=== PATIENT | male | born 1985 | race Caucasian/White ===

== ENCOUNTER 2019-11-25 09:01 | Outpatient (CLI) | payer OTHER, SELFPAY ==
--- NOTE | ~2019-11-25 | US_ITS ---
EXAMINATION: US scrotum doppler EXAM DATE: 11/25/2019 09:47 INDICATION: Bilateral lumps after vasectomy 6 years ago. Family history testicular cancer. TECHNIQUE: Multiple grayscale and Doppler images of the testicles and scrotum were obtained bilateral ly. There is no prior study for comparison. FINDINGS: Right testicle measures 4.5 x 2.0 x 2.9 cm and is morphologically normal. Low resistance Doppler natalie w confirmed. The epididymis is unremarkable. There is a small varicocele. Left testicle measures 4.3 x 2.0 x 2.9 cm and is morphologically normal. Low resistance Doppler flow confirmed. The epididymis is unremarkable. There is a small varicocele. There is a small hydrocele. IMPRESSION: 1. Scanning in patient's areas of concern demonstrated small bilateral varicoceles corresponding to the palpable abnormalities. 2. Normal testicles. Reviewed, dictated and finalized at location A. IMPRESSION: 1. Scanning in patient's areas of concern demonstrated small bilateral varicoc eles corresponding to the palpable abnormalities. 2. Normal testicles.
[2019-11-25 09:20] LABS: Hematocrit 43.5 % (40.0-54.0); Hemoglobin 14.8 g/dL (14.0-18.0); Mean Corpuscular Volume 97.1 fL (78.0-102.0); Mean Platelet Volume 10.7 fl (8.7-11.0); Platelet Count Result 272 K/mm3 (150-420); Red Blood Count 4.48 M/mm3 (4.70-6.10); Red Cell Distribution Width 13.1 % (11.6-14.4)
[2019-11-25 10:12] LABS: Alanine Aminotransferase 45 U/L (16-63); Albumin Level 3.9 g/dL (3.4-5.0); Alkaline Phosphatase 93 U/L (46-116); Anion Gap 12.4 mmol/L (7-16); Aspartate Amino Transferase 27 U/L (15-37); Bilirubin,Total 0.4 mg/dL (0.00-1.00); Blood Urea Nitrogen 15 mg/dL (7-18); CRP < 0.2 mg/dL (0.0-0.9); Calcium 9.1 mg/dL (8.5-10.1); Carbon Dioxide 28 mmol/L (21-32); Chloride 103 mmol/L (98-108); Estimated Glomerular Filt Rate > 60; Glucose 73 mg/dL (70-99); Osmolality Calculated 287 mOsm/kg (285-295); Potassium 4.4 mmol/L (3.5-5.1); Sodium 139 mmol/L (136-145); Total Protein 6.9 g/dL (6.4-8.2)
[2019-11-25 10:23] LABS: Erythrocyte Sedimentation Rate 4 mm/hr (0-15)
== END 2019-11-25 09:02 | disposition home or self-care (01) ==
PROVIDERS: PCP Family Medicine; Visit Provider Family Medicine
DX: N50.89 Other specified disorders of the male genital organs (principal); A08.4 Viral intestinal infection, unspecified; I86.1 Scrotal varices
CPT/HCPCS: 36415; 76870; 80053; 85027; 85652; 86140; 93976

== ENCOUNTER 2020-06-28 11:01 | Outpatient (CLI) | payer OTHER, SELFPAY ==
[2020-07-01 13:53] LABS: TB Skin Test Erythema 0 mm; TB Skin Test Induration 0 mm (0-10); TB Skin Test Interpretation Negative (Negative); TB Skin Test Site Left Arm
== END 2020-06-28 11:02 | disposition home or self-care (01) ==
LOC: CHSLAB 11:03
PROVIDERS: PCP Family Medicine; Visit Provider Family Medicine
DX: Z00.00 Encounter for general adult medical examination without abnormal findings (principal)
CPT/HCPCS: 36415; 86580

== ENCOUNTER 2023-07-25 10:20 | Outpatient (CLI) | payer OTHER, SELFPAY ==
--- NOTE | ~2023-07-25 | XR_ITS ---
XR lumbar spine 2-3V DATE: 07/25/2023 11:06 INDICATION: Low back pain. Slipped on ice in 2017. TECHNIQUE: AP, lateral, coned lateral lumbosacral views COMPARISON: None FINDINGS: The lumbar vertebrae are normally aligned. No fracture or bone destruction or spondylolisth esis. The included lower thoracic and lumbar pedicles are intact. Lumbar and sacral interspaces are w ell preserved. The sacroiliac joints appear normal. Surgical clips, right upper quadrant, likely due to cholecystectomy. IMPRESSION: No significant abnormality of the lumbar spine Reviewed, dictated and finalized at location L. 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
--- NOTE | ~2023-07-25 | XR_ITS ---
XR sacroiliac joints min 3V DATE: 07/25/2023 11:06 INDICATION: Back pain TECHNIQUE: AP and bilateral oblique views of the sacroiliac joints COMPARISON: None FINDINGS: Normal alignment at the pubic symphysis and sacroiliac joints. No erosive change or ankylos is. No sacral fracture or bone destruction is detected. Hip joint spaces appear symmetric and relatively preserved. IMPRESSION: Negative sacroiliac joints Reviewed, dictated and finalized at Location A. 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
[2023-07-25 10:50] LABS: Basophils Absolute Auto 0.07 K/mm3 (0.00-0.10); Basophils Percent Auto 0.6 % (0.0-1.0); Eosinophils Absolute Auto 0.11 K/mm3 (0.02-0.50); Eosinophils Percent Auto 0.9 % (1.0-6.0); Hematocrit 44.5 % (40.0-54.0); Hemoglobin 15.1 g/dL (14.0-18.0); Immature Granulocyte Absolute 0.06 K/mm3 (0.00-0.00); Immature Granulocyte Percent A 0.5 % (0.0-0.0); Lymphocytes Absolute Auto 2.53 K/mm3 (1.10-4.50); Lymphocytes Percent Auto 21.4 % (18.0-42.0); Mean Corpuscular HGB Conc 33.9 g/dL (32.0-36.0); Mean Corpuscular Hemoglobin 32.3 pg (27.0-31.0); Mean Corpuscular Volume 95.1 fL (78.0-102.0); Monocytes Percent Auto 6.8 % (2.0-11.0); Neutrophils Absolute Auto 8.3 K/mm3 (1.7-7.2); Neutrophils Percent Auto 69.8 % (50.0-70.0); Platelet Count Result 319 K/mm3 (150-420); Red Blood Count 4.68 M/mm3 (4.70-6.10); Red Cell Distribution Width 13.4 % (11.6-14.4); White Blood Count 11.8 K/mm3 (4.8-10.8)
[2023-07-25 11:25] LABS: Thyroid Stimulating Hormone Reflex 1.82 u/IU/mL (0.36-3.74)
[2023-07-25 11:33] LABS: Alanine Aminotransferase 38 U/L (16-63); Alkaline Phosphatase 103 U/L (46-116); Anion Gap 11 mmol/L (8-16); Aspartate Amino Transferase 21 U/L (15-37); Bilirubin,Total 0.7 mg/dL (0.00-1.00); Blood Urea Nitrogen 13 mg/dL (7-18); Calcium 8.6 mg/dL (8.5-10.1); Carbon Dioxide 26 mmol/L (21-32); Chloride 105 mmol/L (98-108); Cholesterol 233 mg/dL (0-200); Estimated Glomerular Filt Rate > 60; Glucose 94 mg/dL (70-99); HDL Direct 34 mg/dL (40-60); LDL Cholesterol Calculated 161 mg/dL (<130); Osmolality Calculated 294 mOsm/kg (285-295); Potassium 4.3 mmol/L (3.5-5.1); Prostate Specific Antigen 1.3 ng/mL (< OR = 4.0); Sodium 142 mmol/L (136-145); Total Protein 7.2 g/dL (6.4-8.2); Triglycerides 189 mg/dL (0-150)
== END 2023-07-25 10:21 | disposition home or self-care (01) ==
PROVIDERS: PCP Family Medicine; Visit Provider Family Medicine
DX: Z00.00 Encounter for general adult medical examination without abnormal findings (principal); M54.9 Dorsalgia, unspecified; R35.1 Nocturia; E11.9 Type 2 diabetes mellitus without complications
CPT/HCPCS: 36415; 72100; 72202; 80053; 80061; 84153; 84443; 85025; G0103

== ENCOUNTER 2023-07-30 08:57 | Outpatient (RCR) | payer OTHER, SELFPAY ==
--- NOTE | 2023-07-30 10:42 | OPREHPOC ---
Outpatient Therapy Plan of Care This is a Multidisciplinary Plan of Care that may contain components documented by all disciplines (PT, OT, and ST.) PT Problem 1 PT Problem #1 Knowledge Deficit PT Goal 1 Goal Patient to demonstrate independence with HEP Target Visit 5 PT Problem 2 PT Problem #2 Pain PT Goal 1 Goal 1. Patient to report highest pain at 3/10 2. Patient to report ability to sleep with no disturbance due to low back pain Target Visit 10 PT Problem 3 PT Problem #3 Impaired Range of Motion PT Goal 1 Goal Patient to demonstrate lumbar flexion ability to reach to the floor in order to pick his son up Target Visit 10 PT Problem 4 PT Problem #4 Impaired Strength PT Goal 1 Goal Patient to demonstrate 4+/5 abdominal strength to improve lifting mechanics to return to house hold chores at PLOF Target Visit 10 PT Problem 5 PT Problem #5 Impaired Functional Mobil PT Goal 1 Goal 1. Patient to score 30% improvement on Back Index 2. Patient to demonstrate ability to lift 30# from floor to return to picking up his son 3. Patient to report ability to ride in car for > 30 minutes Target Visit 10
--- NOTE | 2023-07-30 10:42 | PTOPEVAL1 ---
Assessment and note entered by Sonia Ortiz DPT Evaluation Information Assessment Status Evaluation Diagnosis low back pain Onset 07/25/23 Subjective Information Patient reports he has had back pain for the last ~7 years after a fall but pain has increased over the last 1.5 months. He reports pain is at low back to B hips with no reports of radiating pain. patient had x-ray performed that was negative. Patient reports pain is worse with driving, sitting on hard surfaces and picking up his baby at home. patient reports he is not working currently and is staying at home with his son. he worked as a [employer] previously. he reports the chiropractor has helped in the past. He has blood work done and has a follow up with MD on 08/01/23 to go over results Reported Pain Level Pain Score 8: Self Report Assessment PT Clinical Summary Mr. Moreira is a 38 year old male who presents to PT with low back pain. Patient demonstrates hypomobility of the lumbar spine, significant limitations in B LE flexibility and decreased core strength impairing his ability to ride in the car , sit for long periods of time and care for his son. He would benefit from skilled PT to address impairments and return to PLOF. Plan of Care Interventions Electrical Stimulation,Gait Training,Hot Pack/Cold Pack,Manual Therapy,Mechanical Traction,Patient/ Caregiver Educati,Therapeutic Activities, Therapeutic Exercise PT Services Indicated Yes Treatment Frequency and 2x weekly for 10 visits Duration These treatments will address the objective and functional deficits as defined above. The patient will be advanced safely and appropriately in order for the patient to progress towards his/her prior level of function. Additional exercises will be introduced and as well as a comprehensive home exercise program upon discharge, if needed, ?to ensure carryover of functional gains achieved in the clinic. This treatment plan has been reviewed and agreement upon by the patient.
--- NOTE | 2023-08-20 08:44 | PCPTNOTE ---
patient called, no answer
--- NOTE | 2023-08-22 10:22 | OPREHPOC ---
Outpatient Therapy Plan of Care This is a Multidisciplinary Plan of Care that may contain components documented by all disciplines (PT, OT, and ST.) PT Problem 1 PT Problem #1 Knowledge Deficit PT Goal 1 Goal Patient to demonstrate independence with HEP Target Visit 5 Progress Met PT Problem 2 PT Problem #2 Pain PT Goal 1 Goal 1. Patient to report highest pain at 3/10 2. Patient to report ability to sleep with no disturbance due to low back pain Target Visit 16 Comment continue PT Problem 3 PT Problem #3 Impaired Range of Motion PT Goal 1 Goal Patient to demonstrate lumbar flexion ability to reach to the floor in order to pick his son up Target Visit 16 PT Problem 4 PT Problem #4 Impaired Strength PT Goal 1 Goal Patient to demonstrate 4+/5 abdominal strength to improve lifting mechanics to return to house hold chores at PLOF Target Visit 16 PT Problem 5 PT Problem #5 Impaired Functional Mobil PT Goal 1 Goal 1. Patient to score 30% improvement on Back Index 2. Patient to demonstrate ability to lift 30# from floor to return to picking up his son 3. Patient to report ability to ride in car for > 30 minutes Target Visit 16 Comment progressing
--- NOTE | 2023-08-22 10:22 | PTOPREEVAL ---
Assessment and note entered by Sonia Ortiz DPT Evaluation Information Assessment Status Re-evaluation Diagnosis low back pain Onset 07/25/23 Subjective Information patient reports since start of PT he has noticed an improvement. he reports he has been able to sit for longer periods of time, greater ease with picking up his son, and driving is improved as well. he reports last night was his first episode since start of PT. he reports he is still fearful of driving due to episodes . he reports lifting continues to be his most painful activity. Reported Pain Level Pain Score 7: Self Report Assessment PT Clinical Summary Mr. Moreira has been seen for 8 visits of skilled PT with good progression towards goals. He demonstrates improved core strength and decreased pain levels. He has reports of improved sitting tolerance, improved lifting mechanics and ability to drive for increased distances. He continues to report difficulty with lifting heavy objects from the floor, sitting on hard surfaces and is fearful of driving. He would benefit from continued skilled PT to address remaining impairments and return to PLOF. Plan of Care Interventions Electrical Stimulation,Gait Training,Hot Pack/Cold Pack,Manual Therapy,Mechanical Traction,Patient/ Caregiver Educati,Therapeutic Activities, Therapeutic Exercise PT Services Indicated Yes Treatment Frequency and continue 2x weekly for 8 visits Duration These treatments will address the objective and functional deficits as defined above. The patient will be advanced safely and appropriately in order for the patient to progress towards his/her prior level of function. Additional exercises will be introduced and as well as a comprehensive home exercise program upon discharge, if needed, ?to ensure carryover of functional gains achieved in the clinic. This treatment plan has been reviewed and agreement upon by the patient.
--- NOTE | 2023-09-06 09:35 | PCPTNOTE ---
Addendum entered by Sonia Rivera, KENNETH 09/06/23 10:12: patient continues to report not feeling well and is taken to the ER Original Note: patient has episode of elevated BP and reports this is his episode . today's visits cancelled. BP at 174/104 initially but at 144/93 prior to leaving.
--- NOTE | 2023-09-11 10:30 | OPREHPOC ---
Outpatient Therapy Plan of Care This is a Multidisciplinary Plan of Care that may contain components documented by all disciplines (PT, OT, and ST.) PT Problem 1 PT Problem #1 Knowledge Deficit PT Goal 1 Goal Patient to demonstrate independence with HEP Target Visit 5 Progress Met PT Problem 2 PT Problem #2 Pain PT Goal 1 Goal 1. Patient to report highest pain at 3/10 2. Patient to report ability to sleep with no disturbance due to low back pain Target Visit 16 Progress Not Met PT Problem 3 PT Problem #3 Impaired Range of Motion PT Goal 1 Goal Patient to demonstrate lumbar flexion ability to reach to the floor in order to pick his son up Target Visit 16 Progress Not Met PT Problem 4 PT Problem #4 Impaired Strength PT Goal 1 Goal Patient to demonstrate 4+/5 abdominal strength to improve lifting mechanics to return to house hold chores at PLOF Target Visit 16 Progress Not Met PT Problem 5 PT Problem #5 Impaired Functional Mobil PT Goal 1 Goal 1. Patient to score 30% improvement on Back Index 2. Patient to demonstrate ability to lift 30# from floor to return to picking up his son 3. Patient to report ability to ride in car for > 30 minutes Target Visit 16 Progress Not Met
--- NOTE | 2023-09-11 10:30 | PTOPDC ---
Assessment and note entered by Nabila Mcclure, PT Evaluation Information Assessment Status Discharge Diagnosis low back pain Onset 07/25/23 Subjective Information Jai Moreira reports that overall his low back pain has not changed. He had to go to the ER from his PT appointment on 09/04/23 due to increased pain in his lower back, feeling like he was going to pass out, and feeling like he was going to lose control of his bowel/bladder. He reports this caused him to have a panic attack. At the ER, he was given valium and underwent a CT scan of his back that showed wedged discs in his 3 lower back levels. He has an appointment to see Dr. Abrams today after his PT appointment. 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 He notes his pain continues to be worse with sitting or driving too long and lifting items up. 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 He also is limited with lifting his child. He does note that when he has had his back popped in PT it has given him the most relief and he has some temporary relief with some of the stretches. Reported Pain Level Pain Score 0: Self Report Assessment PT Clinical Summary Jai Moreira has completed 12 skilled PT visits for low back pain. He is reporting no overall change in his low back pain and right leg pain. He had to go to the ER last week due to the pain. He continues to have difficulty with sitting and driving, prolonged walking, and lifting items. He objectively demonstrates improved core and hip strength, improved lumbar extension AROM, improved hamstring and piriformis flexibility, and normal deep tendon reflexes bilaterally. However, he has pain elicited with core, right hip flexion, right hip extension, and right plantarflexion strength testing; positive special tests for lumbar nerve root irritation/impingement; and decreased tolerance to sitting/driving. He has a follow up with PCP today and we will put PT on hold until further notice. Plan of Care PT Services Indicated No
== END 2023-09-11 10:44 | disposition home or self-care (01) ==
LOC: CHSPT 08:57
PROVIDERS: PCP Family Medicine; Visit Provider Family Medicine
DX: M54.9 Dorsalgia, unspecified (principal)
CPT/HCPCS: 97014; 97110; 97140; 97161; 97750; G0283

== ENCOUNTER 2023-09-06 09:59 | Emergency (ER) | payer OTHER, SELFPAY ==
--- NOTE | ~2023-09-06 | CT_ITS ---
EXAMINATION: CT abd pelvis lumbar w con DATE: 09/06/2023 11:31 INDICATION: Left lower quadrant abdominal pain, nausea, vomiting and chills. TECHNIQUE: Computed tomography (CT) of the abdomen, pelvis and lumbar spine was performed with 100 mL Omnipaque-350 intravenous contrast. Automated exposure control and iterative reconstruction techniqu e were employed. The dose-length product was 409.27 mGy-cm. COMPARISON: None FINDINGS: Mild dependent atelectasis in the bilateral lower lobes. Heart size is normal. No pericardial or pleu ral effusion. Cholecystectomy clips the gallbladder fossa. Liver, spleen, pancreas, bilateral adrenal glands and kidneys are normal. Bowels including the appendix are normal. Bladder is normal. No free intraperitoneal gas or fluid. No pathologically enlarged abdominal or pelvic lymphadenopathy. Lumbar spine: Alignment is normal. Mild likely physiologic anterior wedging at T11 and T12 and minimal at L1. No ac francesco fracture. Disc heights are normal. And mild osteoarthritis at the right L5-S1 facet joints. Remai jacque facet joints are normal. No central canal or neural foraminal stenosis. IMPRESSION: 1. No acute intra-abdominal/pelvic process. 2. Minimal to mild likely physiologic anterior wedging at T11-L1. Otherwise unremarkable lumbar spine . Reviewed, dictated and finalized at location B. IMPRESSION: 1. No acute intra-abdominal/pelvic process. 2. Minimal to mild likely physiologic anterior wedging at T11-L1. Otherwise unr emarkable lumbar spine.
[2023-09-06 10:02] VITALS: BP 153/99; PULSE 79; RESP 19; TEMP 36.2; O2SAT 100
--- NOTE | 2023-09-06 10:05 | ED.GENADULT ---
HPI - General Adult General Chief complaint: Back Pain/Injury Stated complaint: weakness Time Seen by Provider: 09/06/23 10:03 History of Present Illness HPI narrative: Patient is a 38 year old male with history of chronic back pain and abdominal pain. 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 He has been attempting physical therapy and using muscle relaxers as needed through his primary doctor. He has been overall doing quite a bit better until last night. 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 He noted that at the end of the day the pain seemed to be worse in his lower back. Around 3 am his touched his back, and he noted it felt like he was being stabbed. He has been unable to get comfortable since that time. His back pain was previously bilateral, since initiating therapies it seems to only be on the right side. Currently, pain is located on right lower back, worse with movement. Today he attempted to go to physcial therapy where his pain continued to worsen and he developed diaphoresis, light headedness, nausea and nearly passed out. He denies any bowel or bladder incontinence. He does note that his stream seems to be less strong over the last 3 + months, no acute changes today. No saddle anesthesia. In terms of his abdominal pain, the pain is located mainly on the LLQ and has been present in some form since 2010. He has had 2 colonoscopies, last of which was in 2011 which did not identify the source of pain. He additionally had a prior cholecystectomy thinking this could be the source of his pain however it did not resolve the symptoms. No chest pain or shortness of breath. Related Data Allergies Allergy/AdvReac Type Severity Reaction Status Date / Time sumatriptan [From Imitrex] AdvReac Mild Unknown Verified 08/01/23 09:25 Review of Systems Review of Systems: All systems reviewed & are unremarkable except as noted in HPI and below PMFSH Past Medical History Medical History (Updated 09/06/23 @ 12:17 by Anamaria Lobato MD) Migraines Surgical History Surgical History Hx laparoscopic cholecystectomy Social History Social History (Reviewed 12/08/21 @ 10:18 by JARROD Forde Smoking status: Current every day smoker Substance use: never Substance use type: does not use Living arrangements: with family Exam Narrative: GENERAL: trembling, diaphoretic HEAD: Normocephalic, atraumatic. EYES: PERRLA and EOMI. ENT: Nares clear. Mucous membranes moist. NECK: Supple. CHEST: Clear to auscultation. No respiratory distress. HEART: Regular rate and rhythm. Normal peripheral pulses. ABDOMEN: Soft, LLQ tenderness, no rebound or guarding, nondistended. EXTREMITIES: Normal range of motion. No edema. Right lumbar paraspinal tenderness. No CVA tenderness. SKIN: Warm, dry, no rash. NEURO: No focal deficits. Alert and oriented x3. PSYCH: Normal mood and affect. Course Course Emergency Course: Chart review performed. Patient here for dizziness, light headedness and nausea at physical therapy today. Triage vitals grossly normal aside from HTN. Last PCP visit from 08/01/23 reviewed. He was being followed for back pain. They also note chronic LLQ abdominal pain. Outpatient CT appears to have been ordered at that visit. It does not seem to have been completed yet in our system. Patient seen and evaluated, diaphoretic, trembling. Suspect symptoms are likely related to his chronic back pain. It does appear that his PCP is attempting to get an outpatient CT scan. He is tender in the LLQ, will do CT here and add on lumbar reconstruction. Valium, zofran and IVF ordered. Basic lab work ordered. Lab work and imaging reviewed. CBC grossly normal. Electrolytes within normal limits, normal renal function, normal LFTs. CRP negat
[2023-09-06] MEDS: ONDANSETRON INJ 4 MG/2 ML VIAL IV PUSH (10:20)
[2023-09-06] MEDS: diazePAM (*CRX) 5 MG TABLET 10 MG PO (10:20)
[2023-09-06] MEDS: SODIUM CHLORIDE 0.9% IV 1,000 ML 999 ML IV CONT (10:23)
--- NOTE | 2023-09-06 10:30 | ECG_ITS ---
Measurements Intervals [place] Rate: 79 P: 9 AR: 140 QRS: 27 QRSD: 97 T: -8 QT: 375 QTc: 430 Interpretive Statements SINUS RHYTHM DELAYED PRECORDIAL R/S TRANSITION INFERIOR INFARCT, AGE INDETERMINATE ABNORMAL ECG NO PREVIOUS ECG AVAILABLE FOR COMPARISON Electronically Signed On 09-06-2023 11:12:53 CDT by Pool Brandt D.O.
[2023-09-06 10:32] LABS: Basophils Absolute Auto 0.04 K/mm3 (0.00-0.10); Basophils Percent Auto 0.4 % (0.0-1.0); Eosinophils Absolute Auto 0.09 K/mm3 (0.02-0.50); Eosinophils Percent Auto 0.9 % (1.0-6.0); Hematocrit 42.4 % (40.0-54.0); Hemoglobin 14.3 g/dL (14.0-18.0); Immature Granulocyte Absolute 0.02 K/mm3 (0.00-0.00); Immature Granulocyte Percent A 0.2 % (0.0-0.0); Lymphocytes Absolute Auto 2.62 K/mm3 (1.10-4.50); Lymphocytes Percent Auto 27.6 % (18.0-42.0); Mean Corpuscular HGB Conc 33.7 g/dL (32-36); Mean Corpuscular Hemoglobin 32.3 pg (27.0-31.0); Mean Corpuscular Volume 95.7 fL (78.0-102.0); Mean Platelet Volume 10.3 fl (8.7-11.0); Monocytes Absolute Auto 0.99 K/mm3 (0.10-0.90); Monocytes Percent Auto 10.4 % (2.0-11.0); Neutrophils Absolute Auto 5.73 K/mm3 (1.70-7.20); Neutrophils Percent Auto 60.5 % (50.0-70.0); Platelet Count Result 282 K/mm3 (150-420); Red Blood Count 4.43 M/mm3 (4.70-6.10); Red Cell Distribution Width 13.2 % (11.6-14.4); White Blood Count 9.5 K/mm3 (4.8-10.8)
[2023-09-06 10:48] LABS: Partial Thromboplastin Time 28.8 Sec (23.9-30.70); Prothrombin Time 10.7 Seconds (9.50-12.1)
[2023-09-06 10:49] LABS: Alanine Aminotransferase 35 U/L (16-63); Albumin Level 3.7 g/dL (3.4-5.0); Alkaline Phosphatase 108 U/L (46-116); Anion Gap 8 mmol/L (8-16); Aspartate Amino Transferase 20 U/L (15-37); Bilirubin,Total 0.7 mg/dL (0.00-1.00); Blood Urea Nitrogen 12 mg/dL (7-18); Calcium 8.3 mg/dL (8.5-10.1); Carbon Dioxide 27 mmol/L (21-32); Chloride 105 mmol/L (98-108); Estimated Glomerular Filt Rate > 60; Glucose 96 mg/dL (70-99); Magnesium 1.8 mg/dL (1.8-2.4); Osmolality Calculated 289 mOsm/kg (285-295); Potassium 3.8 mmol/L (3.5-5.1); Sodium 140 mmol/L (136-145); Total Protein 6.8 g/dL (6.4-8.2)
[2023-09-06 10:50] LABS: Add Urine Microscopic? NO; Appearance Urine Clear (Clear); Bilirubin Urine Negative (Negative); Blood Urine Negative (Negative); Color Urine Light Yellow (Yellow); Glucose Urine UA Negative (Negative); Ketones Urine Negative (Negative); Leukocyte Esterase Ur Negative LEU/UL (Negative); Nitrate Urine Negative (Negative); Protein Urine Negative (Negative); Urobilinogen Urine 0.2 mg/dL (0.2-1.0)
[2023-09-06 10:50] LABS: CRP < 0.5 mg/dL (0.0-0.9)
[2023-09-06 10:51] LABS: Lipase 34 U/L (16-77)
[2023-09-06 10:58] VITALS: BP 143/93; PULSE 82; RESP 18; O2SAT 96
[2023-09-06 11:00] VITALS: O2SAT 95
[2023-09-06 11:01] VITALS: BP 122/84; PULSE 97; RESP 20; O2SAT 95
[2023-09-06 11:19] LABS: SARS-CoV-2 RNA PCR Negative (Negative)
[2023-09-06 11:22] LABS: Influenza A QL RT-PCR Negative (Negative); Influenza B QL RT-PCR Negative (Negative); RSV RNA, RT-PCR Negative (Negative)
[2023-09-06 11:31] LABS: Troponin I < 4.0 ng/L (0.00-60.4)
== END 2023-09-06 12:21 | disposition home or self-care (01) ==
PROVIDERS: Emergency Provider Student in an Organized Health Care Education/Training Program; PCP Family Medicine
DX: R53.1 Weakness (principal); M54.50 Low back pain, unspecified; Z20.822 Contact with and (suspected) exposure to COVID-19
CPT/HCPCS: 36415; 72132; 74177; 80053; 81003; 83690; 83735; 84484; 85025; 85610; 85730; 86140; 87637; 93005; 96374; 99284; A9270; J2405; J7030; Q9967

== ENCOUNTER 2023-10-12 11:44 | Emergency (ER) | payer OTHER, SELFPAY ==
[2023-10-12 11:44] VITALS: BP 141/103; PULSE 82; RESP 20; TEMP 36.7; O2SAT 98
--- NOTE | 2023-10-12 12:16 | ED.GENADULT ---
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 He was seen July 25 and at that time he had said he had pain in his back for over a month. Was put on some [place] and Flexeril and referred to physical therapy. On patient said the Flexeril helped but the [place] did not help he had had 1 physical therapy at that point he is prescribed oxycodone 5 mg On September 05 he saw his primary care was prescribed Valium Zofran [place] oxycodone. He has had a history of abdominal pain since 2011. He had a cholecystectomy and also had colonoscopy in 2010. September [address] Abrams an MRI was ordered and he was given prescription for Valium. On 09/25 is given another prescription for Valium Four hundred sixteen he was prescribed [place] Patient states he has episodes of back and neck pain up and down the back going down both legs now he can only sit in his computer chair with a heating pad and vibrating going on the chair. He is only driven once in the last month because he gets episodes read gets numb throughout his body dizzy he gets these painful nurse spikes feels like he is going to pass out in his heart races. When he is taking the Valium he has 3 or 4 of these episodes a day. But now that he has been out of the Valium for a week they are occurring 10 times a day. These have been going on for 4 months. He rates his pain as a 8/10. When he gets the episodes it is 9 or 9.5. He has not yet Had his MRI as insurance company have been dragging their feet. denies any saddle paresthesias difficulty voiding or stooling fever or any other red flags. Denies any swelling lumps or bumps weakness cough fever sore throat runny nose difficulty breathing bleeding or bruising rash or itching or any other complaints. Says he does not have a history of anxiety and depression. Patient states he is not yet applied for disability and no lawsuit is pending. Related Data Allergies Allergy/AdvReac Type Severity Reaction Status Date / Time sumatriptan [From Imitrex] AdvReac Mild Unknown Verified 09/11/23 07:38 lidocan Allergy Mild Hives Uncoded 09/11/23 09:46 Review of Systems Review of Systems: All systems reviewed & are unremarkable except as noted in HPI and below PMFSH Past Medical History Medical History (Updated 10/12/23 @ 13:29 by Naveen Scott MD) Migraines Surgical History Surgical History Hx laparoscopic cholecystectomy Social History Social History Smoking status: Current every day smoker Substance use: never Substance use type: does not use Living arrangements: with family Exam Narrative: White male Mild apparent distress. Blood pressure 141/103 the rest of his vitals are normal ?Head:? Normocephalic atraumatic.? Eyes conjunctiva pink sclera nonicteric.? Ears TMs are normal.? Oropharynx is clear with moist mucous membranes no exudates.? Neck is supple no lymphadenopathy nontender full range of motion.? Back is nontender or minimally tender in the paralumbar area. Negative straight leg raise bilaterally. Deep tendon reflexes lower extremities are +2..? Chest nontender.? Lungs are clear without wheezes rales or rhonchi.? Heart is regular rate rhythm without murmurs gallops or rubs.? Abdomen soft and nontender no hepatosplenomegaly or masses no CVA tenderness no abdominal bruits.? Extremities no cyanosis clubbing or edema.? Neurological she is alert and oriented x4 motor and sensory grossly intact.? Skin is warm and dry without lesions. gait is normal Course Vital Signs Vital signs: Vital Signs Temperature 36.7 C 10/12/23 11:44 P
[2023-10-12] MEDS: diazePAM (*CRX) 5 MG TABLET PO (13:16)
[2023-10-12 13:30] VITALS: BP 135/93; PULSE 79; RESP 20; TEMP 36.8; O2SAT 100
== END 2023-10-12 13:31 | disposition home or self-care (01) ==
PROVIDERS: Emergency Provider Emergency Medicine; PCP Family Medicine
DX: M54.50 Low back pain, unspecified (principal); G89.29 Other chronic pain; F41.0 Panic disorder [episodic paroxysmal anxiety]; Z87.828 Personal history of other (healed) physical injury and trauma; F17.200 Nicotine dependence, unspecified, uncomplicated
CPT/HCPCS: 99283; A9270

== ENCOUNTER 2023-11-02 09:17 | Outpatient (CLI) | payer OTHER, SELFPAY ==
--- NOTE | ~2023-11-02 | MR_ITS ---
EXAMINATION: MR lumbar spine wo con DATE: 11/02/2023 10:01 INDICATION: Low back pain, unspecified. TECHNIQUE: Magnetic resonance imaging (MRI) of the lumbar spine was performed without intravenous con trast. COMPARISON: CT lumbar spine 09/06/2023 FINDINGS: Bone alignment is normal. There is mild chronic anterior wedging of T12 vertebral body. Int ervertebral disc heights are normal. The distal spinal cord signal intensity is normal. The conus med ullaris is at L1. The following disc levels are specifically discussed: L1-L2: The disc does not extend beyond the endplate margin. There is no facet joint osteoarthritis. T here is no neural foraminal stenosis. There is no central canal stenosis. L2-L3: The disc does not extend beyond the endplate margin. There is mild bilateral facet joint osteo arthritis. There is no neural foraminal stenosis. There is no central canal stenosis. L3-L4: The disc is bulging. There is no facet joint osteoarthritis. There is mild bilateral neural fo raminal stenosis. There is no central canal stenosis. L4-L5: The disc is bulging. There is mild bilateral facet joint osteoarthritis. There is mild bilater al neural foraminal stenosis. There is no central canal stenosis. L5-S1: The disc does not extend beyond the endplate margin. There is moderate bilateral facet joint o steoarthritis. There is no neural foraminal stenosis. There is no central canal stenosis. IMPRESSION: 1. Mild lumbar spondylosis. Reviewed, dictated and finalized at location E. IMPRESSION: 1. Mild lumbar spondylosis.
== END 2023-11-02 09:18 | disposition home or self-care (01) ==
LOC: CHSIMG 09:18
PROVIDERS: PCP Family Medicine; Visit Provider Family Medicine
DX: G89.29 Other chronic pain (principal); M54.50 Low back pain, unspecified; M43.06 Spondylolysis, lumbar region
CPT/HCPCS: 72148

== ENCOUNTER 2024-03-11 08:20 | Outpatient (RCR) | payer OTHER, SELFPAY ==
--- NOTE | 2024-03-11 09:44 | OPREHPOC ---
Outpatient Therapy Plan of Care This is a Multidisciplinary Plan of Care that may contain components documented by all disciplines (PT, OT, and ST.) PT Problem 1 PT Problem #1 Knowledge Deficit PT Goal 1 Goal / Goal Update 1. independent and compliant with HEP Target Visit 6 PT Problem 2 PT Problem #2 Pain PT Goal 1 Goal / Goal Update 1. decrease pain at worst to 4/10 or less in the lower back Target Visit 12 PT Problem 3 PT Problem #3 Impaired Range of Motion PT Goal 1 Goal / Goal Update 1. 100% active lumbar rom Target Visit 12 PT Problem 4 PT Problem #4 Impaired Strength PT Goal 1 Goal / Goal Update 1. 5/5 bilateral hip strength 2. 5/5 R knee strength Target Visit 12 PT Problem 5 PT Problem #5 Impaired Functional Mobil PT Goal 1 Goal / Goal Update 1. oswestry to display 30% or less functional deficits 2. patient to stand and sit for 2 hours or more without pain increase 3. patient to ambulate 30 minutes or more without pain increase 4. patient to develop 4x weekly workout routine to improve his rom, core strength, LE/UE strength, and to improve lifting/functional activity performance Target Visit 12
--- NOTE | 2024-03-11 09:44 | PTOPEVAL1 ---
Assessment and note entered by JT File, PT Evaluation Information Assessment Status Evaluation ICD-10 Condition Codes (PT) Pain in low back M54.50 Other ICD-10 Condition Codes ( G89.29 PT) Subjective Information patient is coming to therapy for his lower back pain. he has seen pain management, and is trying to get injections to the lumbar spine. however, his insurance requires him to try conservative therapies first, PT. he reports he has pain in the lower back all the time. he reports he also has increased pain with lifting, bending, sitting on firm surfaces. he reports he has been having this debilitating lower back pain for about 1 year. he has not been back to work. 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 he reports he does have numbness and tingling down both legs off and on. he reports he has been unable to remain physically active and exercises since his last round of therapy due to the pain and tightness in the lower back. he reports he is doing some arm and upper body exercise, and walking short bouts. Reported Pain Level Pain Score 8: Self Report Assessment PT Clinical Summary mr. villa is a 38 yo man who presents to skilled PT services for evaluation and treatment of lower back pain that he reports does radiate down the legs. today, he presents with decreased rom, mm tightness, weakness, pain, and decreased functional activity performance. he presents with signs and symptoms of mild lumbar spondylosis. he would benefit from continued skilled PT to improve his objective/functional deficits to return to his prior level functional activity performance and quality of life. Plan of Care Interventions Electrical Stimulation,Gait Training,Hot Pack/Cold Pack,Manual Therapy,Mechanical Traction,Neuro Re- education,Patient/Caregiver Educati,Therapeutic Activities,Therapeutic Exercise PT Services Indicated Yes Treatment Frequency and 3x weekly for 12 visits Duration These treatments will address the objective and functional deficits as defined above. The patient will be advanced safely and appropriately in order for the patient to progress towards his/her prior level of function. Additional exercises will be introduced and as well as a comprehensive home exercise program upon discharge, if needed, ?to ensure carryover of functional gains achieved in the clinic. This treatment plan has been reviewed and agreement upon by the patient.
--- NOTE | 2024-03-24 10:03 | OPREHPOC ---
Outpatient Therapy Plan of Care This is a Multidisciplinary Plan of Care that may contain components documented by all disciplines (PT, OT, and ST.) PT Problem 1 PT Problem #1 Knowledge Deficit PT Goal 1 Goal / Goal Update 1. independent and compliant with HEP Target Visit 6 Progress Met PT Problem 2 PT Problem #2 Pain PT Goal 1 Goal / Goal Update 1. decrease pain at worst to 4/10 or less in the lower back Target Visit 12 Progress Not Met PT Problem 3 PT Problem #3 Impaired Range of Motion PT Goal 1 Goal / Goal Update 1. 100% active lumbar rom Target Visit 12 Progress Not Met PT Problem 4 PT Problem #4 Impaired Strength PT Goal 1 Goal / Goal Update 1. 5/5 bilateral hip strength 2. 5/5 R knee strength Target Visit 12 Progress Not Met PT Problem 5 PT Problem #5 Impaired Functional Mobil PT Goal 1 Goal / Goal Update 1. oswestry to display 30% or less functional deficits 2. patient to stand and sit for 2 hours or more without pain increase 3. patient to ambulate 30 minutes or more without pain increase 4. patient to develop 4x weekly workout routine to improve his rom, core strength, LE/UE strength, and to improve lifting/functional activity performance Target Visit 12 Progress Not Met
--- NOTE | 2024-03-24 10:03 | PTOPREEVAL ---
Assessment and note entered by JT File, PT Evaluation Information Assessment Status Re-evaluation ICD-10 Condition Codes (PT) Pain in low back M54.50 Other ICD-10 Condition Codes ( G89.29 PT) Subjective Information patient reports he continues to have pain in his lower back that has not changed much since starting skilled PT. he does report feeling he has made a slight improvement in his mobility. he reports he does not return to pain management until 04/20/24. he reports he lindsay increased pain with sitting on firm surfaces, laying on his sides , driving, lifting heavy objects, etc. Reported Pain Level Pain Score 7: Self Report Pain Score 8: Self Report Assessment PT Clinical Summary mr. villa presents to skilled PT for his 6th skilled PT visit. he continues to report pain in the lower back both at rest and increased with activities. he is limited in the amount of time he can sit, stand, walk, drive, etc due to his pain/ symptoms. he is compliant with his HEP, but has not met any other goals for skilled PT yet. given his deficits and longevity of symptoms, he will likely require increased time in skilled PT to display any measurable improvement. he would benefit from continued skilled PT to address his remaining halfway goals and objective/functional deficits. Plan of Care Interventions Electrical Stimulation,Gait Training,Hot Pack/Cold Pack,Manual Therapy,Mechanical Traction,Neuro Re- education,Patient/Caregiver Educati,Therapeutic Activities,Therapeutic Exercise PT Services Indicated Yes Treatment Frequency and continue skilled PT 3x weekly for 6 more visits Duration per his initial POC request. These treatments will address the objective and functional deficits as defined above. The patient will be advanced safely and appropriately in order for the patient to progress towards his/her prior level of function. Additional exercises will be introduced and as well as a comprehensive home exercise program upon discharge, if needed, ?to ensure carryover of functional gains achieved in the clinic. This treatment plan has been reviewed and agreement upon by the patient.
== END 2024-03-24 09:45 | disposition home or self-care (01) ==
LOC: CHSPT 08:20
PROVIDERS: Visit Provider Anesthesiology Pain Medicine
DX: M54.50 Low back pain, unspecified (principal); G89.29 Other chronic pain
CPT/HCPCS: 97014; 97110; 97112; 97140; 97150; 97161; G0283

== ENCOUNTER 2024-06-02 07:38 | Day surgery (SDC) | payer OTHER, SELFPAY ==
--- NOTE | ~2024-06-02 | XR_ITS ---
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 TECHNIQUE: 11 fluoroscopic images and one cine clip of the lumbar spine were obtained during diagnost ic/prognostic L3, L4, L5 medial branch and dorsal ramus nerve block, performed by Omega Valiente MD . I was not present during the procedure. Fluoroscopy exposure time was 25.8 seconds. Air Kerma 6.29 mGy. COMPARISON: None FINDINGS/IMPRESSION: Fluoroscopic documentation of diagnostic/prognostic L3, L4, L5 medial branch and dorsal ramus nerve b lock. Please refer to the operative note for complete procedural details . Reviewed, dictated and finalized at location K. HAMMER SET UP OPERATOR
--- NOTE | 2024-06-02 07:24 | P.HP_ITS ---
History of Present Illness History of Present Illness Consent: Risks, benefits, and alternatives have been discussed and questions answered. Patient agrees to proceed with procedure. Chief complaint: Lumbosacral Spondylosis , chronic low back pain Narrative: Jai Moreira Jr. is a 38 year old male with chronic, recalcitrant and disabling bilateral lumbosacral back pain secondary to degenerative spondylosis with failure to respond to aggressive conservative measures including PT, oral and topical analgesics, opioid and nonopioid analgesics, rest, time and activity/behavioral modification over the past 1-2 years who presents for diagnostic/prognostic medial branch blocks of the bilateral L3, L4, L5 medial branches/dorsal ramus(#1) addressing the ipsilateral L4-5, L5-S1 facet joints under fluoroscopic guidance and with contrast control. Review of Systems Review of Systems: Patient denies any new infectious, allergic, cardiopulmonary, neurologic or cons titutional symptoms or changes in activity tolerance or exercise capacity including new or progressive SOB/VEGA, peripheral edema, productive cough, dysuria, nausea/vomiting, diarrhea, weight change, fevers/chills/night sweats, new or progressive neurologic deficit, cognitive or mood changes since last seen, except as documented in the HPI. All systems reviewed & are unremarkable except as noted in HPI and below PMFSH Past Medical History Medical History Migraines Surgical History Surgical History Hx laparoscopic cholecystectomy Social History Social History Smoking status: Current every day smoker Tobacco type: e-cigarettes/vaping Substance use: never Substance use type: does not use Do You Feel Safe in your Home?: Yes Lack of Transportation: No Lack of Food: Never True Current Housing: I Have Housing Concerned About Future Housing: Decline to Answer Difficulty Paying Gas/Electric Bills: Decline to Answer Difficulty Paying for Meds: Decline to Answer Currently Unemployed: YES Education: Decline to Answer Difficulty w/ Childcare or Family Care: No Living arrangements: with family Meds Home Medications and Allergies Home Medications ?Medication ?Instructions ?Recorded ?Confirmed ?Type atorvastatin 20 mg tablet 20 mg PO DAILY #90 tabs 02/04/24 05/15/24 Rx venlafaxine 75 mg capsule,extended 75 mg PO DAILY #90 caps 02/04/24 05/15/24 Rx release 24 hr Allergies Allergy/AdvReac Type Severity Reaction Status Date / Time sumatriptan (From Imitrex) AdvReac Mild Unknown Verified 05/15/24 10:15 lidocan Allergy Mild Hives Uncoded 05/15/24 10:15 Exam Narrative: The patient's physical exam is essentially unchanged from prior examination on 04/20/2024. Specifically, patient demonstrates normal lung capacity, tidal volume and respiratory rate without wheezes, crackles, rales or rubs. Heart rate and rhythm are regular without murmurs, gallops or rubs. No JVD. Pulses 2+ globally without increasing peripheral edema. AAOx3, NC/AT without acute distress or altered consciousness. Speech, cognition, mood and judgment at baseline and within normal limits. Assessment and Plan Assessment and plan (1) Lumbosacral spondylosis: Code(s): M47.817 - Spondylosis without myelopathy or radiculopathy, lumbosacral region Status: Acute (2) Chronic low back pain: Code(s): M54.50 - Low back pain, unspecified; G89.29 - Other chronic pain Status: Acute Plan proceed as planned with diagnostic /prognostic lumbar medial branch/dorsal ramus nerve blocks at L3, L4, L5 ( # 1) the dressing the bilateral L4-5, L5-S1 facet joints under fluoroscopic guidance.
--- NOTE | 2024-06-02 07:27 | W.PM.PROC2 ---
Procedure Note - Detailed Date of Procedure 06/02/24 Pre-op Diagnosis Lumbosacral Spondylosis , chronic low back pain Post-op Diagnosis Same Procedure Performed Diagnostic Bilateral Lumbar Medial Branch/Dorsal Ramus Blocks at L3, L4, L5 Treating the bilateral L4-5, L5-S1 Facet Joints Under Fluoroscopic Guidance and with Contrast Control. ( 4 levels blocked). Surgeon Omega Valiente MD Teacher Aide Clerical None. Anesthesia Local Description of Procedure INFORMED CONSENT: Risks, benefits and alternatives to the procedure were discussed in detail with the patient who expressed explicit understanding and consent to proceed. Patient was informed verbally and in written form regarding the risks associated with the procedure including the low risk of serious infection, bleeding/bruising, allergic reaction, nerve or organ injury, paralysis, procedural site pain or discomfort, worsening pain and/or mobility, failure to treat and/or disfigurement. The patient expressed explicit understanding and consent to proceed. All materials required for the procedure were available prior to procedure start. Site and side were marked prior to procedure and confirmed in the presence of the patient. PROCEDURE IN DETAIL: The patient was brought to the procedural suite and placed in the prone position. Patient was made comfortable with use of pillows under the head/chest, hips and ankles. Skin overlying the injection site on the affected side(s) was prepared broadly with ChloraPrep applicator and draped in a sterile manner. Aseptic technique was used throughout. The endplates of the vertebral bodies at the site(s) of interest were aligned in the AP view. Ipsilateral oblique angulation was utilized to optimize visualization of the intersection between the superior articulating process and transverse process at each target site. Local anesthesia was established by infiltration with approximately 5 mL of 1% lidocaine via a 1-1/2 inch 27-gauge needle. A 25-gauge 5.0 inch Quincke spinal needle was advanced until the needle tip contacted periosteum at the target site, right L3. Lateral view was utilized to confirm the appropriate placement of the needle tip just anterior to the facet line and superior to the pedicle. In the Lateral view, 0.25 mL of Omnipaque 300 contrast medium was injected after negative aspiration for CSF, blood or other bodily fluid, showing appropriate extra-articular spread of contrast without evidence of intravascular, foraminal or intrathecal placement. A 0.5 mL solution of 0.5% PF bupivacaine was injected after negative repeat aspiration. Appropriate spread of the injectate was confirmed with washout of previously injected contrast. No parasthesias were elicited. Needle was removed completely intact without difficulty. The same exact procedure was repeated for all remaining levels on the ipsilateral side, right L4, L5 medial branches/dorsal ramus, modified as necessary to accommodate for the new target location with identical findings and results and no evidence of complication. The same exact procedure was repeated for all remaining levels on the contralateral side, left L3, L4, L5 medial branches/dorsal ramus, modified as necessary to accommodate for the new target location with identical findings and results and no evidence of complication. Images were saved and documented in the patient chart. Patient's skin was cleaned and sterile bandage applied. The patient tolerated the procedure well. The patient was transported to the recovery area in stable condition where they were observed for an appropriate amount of time prior to discharge, without evidence of complication. Patient was instructed on the appropriate completion of a pain diary over the next 12-24 hours. The patient was instructed to avoid excessive activity for the next 48 hours, including climbing and frequent use of stairs. Showers only for 48 hours. They were instructed not to drive or operate heavy machinery for 24 hours. They are to monitor for severe headaches, fevers, chills, night sweats, erythema/swelling at the site or any other signs of infection, bleeding/bruising, bowel or bladder changes as well as new pain, weakness or numbness in the upper or lower extremity. Should they notice these changes, they are instructed to call our office immediately or report directly to the nearest Emergency Department if no answer or if after posted office hours. COMPLICATIONS: None COMMENTS: None CONTRAST WASTED: 28.5mL Omnipaque 300. Complications No immediate complications Condition Stable Disposition Same day [facility] Billing Surgery - Charge Forward: Surgery Billing
[2024-06-02 08:39] VITALS: BP 147/102; PULSE 88; RESP 15; TEMP 36.9; O2SAT 100
[2024-06-02 09:12] VITALS: BP 147/89; PULSE 71; RESP 16; O2SAT 99
[2024-06-02] MEDS: BUPivacaine HCL 0.5% 10 ML AMP INFILTRATE (09:15)
[2024-06-02] MEDS: LIDOCAINE HCL 1% PF INJ 5 ML VIAL INFILTRATE (09:17)
[2024-06-02 09:18] VITALS: BP 140/87; PULSE 79; RESP 18; O2SAT 99
[2024-06-02 09:23] VITALS: BP 135/86; PULSE 73; RESP 16; O2SAT 99
[2024-06-02 09:29] VITALS: BP 135/100; PULSE 80; RESP 15; O2SAT 100
== END 2024-06-02 09:41 | disposition home or self-care (01) ==
LOC: ASC 08:04
PROVIDERS: PCP Family Medicine; Visit Provider Anesthesiology Pain Medicine
PROC: (CPT 64493; principal; 2024-06-02 09:00)
DX: M47.817 Spondylosis without myelopathy or radiculopathy, lumbosacral region (principal); M54.59 Other low back pain
CPT/HCPCS: 64493 ×2; 64494 ×2; 99199

== ENCOUNTER 2024-10-14 10:39 | Emergency (ER) | payer OTHER, SELFPAY ==
[2024-10-14] VITALS (24 sets, daily range): BP systolic 127–147; BP diastolic 87–105; PULSE 71–101; RESP 14–26; TEMP 36.3–36.5; O2SAT 92–100
--- NOTE | ~2024-10-14 | CT_ITS ---
EXAMINATION: CT brain wo con DATE: 10/14/2024 11:39 INDICATION: Dizziness TECHNIQUE: Computed tomography (CT) of the head was performed without intravenous contrast. Sagittal and coronal reconstructions were performed. The mA was adjusted according to patient size. Iterative reconstruction technique was employed. The dose-length product was 605.33 mGy-cm. COMPARISON: None FINDINGS: No acute intracranial hemorrhage, acute infarction or abnormal extra axial fluid collection. Ventricl es are normal and symmetric. No mass/mass effect. The orbits, paranasal sinuses and mastoid air cells are normal. IMPRESSION: 1. Normal head CT. Reviewed, dictated and finalized at location A. IMPRESSION: 1. Normal head CT.
--- NOTE | ~2024-10-14 | CT_ITS ---
EXAMINATION: CT chest abdomen pelvis w con DATE: 10/14/2024 12:38 INDICATION: Fever with lactic acidosis. Left lower quadrant abdominal pain. TECHNIQUE: Computed tomography (CT) of the chest, abdomen, and pelvis was performed with 100 mL Omnip aque-350 intravenous contrast. Automated exposure control and iterative reconstruction technique were employed. The dose-length product was 597.37 mGy-cm. COMPARISON: 09/06/2023 FINDINGS: CHEST CT: Mild discoid atelectasis in the dependent lower lobes. No pneumonia, pulmonary edema, pleural effusio n or pneumothorax. Heart size is normal. No pericardial effusion. Thoracic aorta is normal in caliber with no dissection. Triangular region of numerous tiny nodular soft tissue densities interspersed wi th fat in the anterior mediastinum consistent with thymic hyperplasia. No pathologically enlarged tho racic lymphadenopathy. Minimal thoracic spondylosis. ABDOMEN/PELVIS CT: Cholecystectomy clips at the gallbladder fossa. Liver, spleen, pancreas, bilateral adrenal glands and kidneys are normal. Bladder is normal. Bowels including the appendix are normal. No free intraperito pascale gas or fluid. No pathologically enlarged abdominal or pelvic lymphadenopathy. Chronic likely phy siologic anterior wedging, mild at T11 and T12 and minimally at L1. IMPRESSION: 1. No acute cardiopulmonary disease or acute intra-abdominal/pelvic process. 2. Mild thymic hyperplasia. Reviewed, dictated and finalized at location A.
--- NOTE | 2024-10-14 10:46 | ED.SYNCOPE ---
HPI - Syncope General Chief Complaint: Syncope Stated Complaint: NEAR SYNCOPE Time Seen by Provider: 10/14/24 10:41 Source: patient Mode of arrival: ambulatory Limitations: no limitations History of Present Illness HPI narrative: 39-year-old male with a history of chronic low back pain status post epidural, anxiety with panic attacks presents to the ED with -- a presyncopal spell which came on while standing. Patient states that he felt lightheaded. He was noted to be sweaty and shaky. He had a similar episode 2 days ago. He fell to the ground but did not sustain any injuries. -- Right chin pain No shortness of breath. No focal neuro deficits. No urinary incontinence. he called EMS. -- En route to the hospital The patient developed abdominal pain. No nausea/ vomiting. No fever or chills. he had a loose stool this morning. no radiation of the pain. -- numbness of his extremities on arrival to the hospital the patient is hemodynamically stable. The patient is shaky and hyperventilating. In view of the jaw pain the EMS gave him 4 tablets of baby aspirin. He has had anxiety spells off and on For the past few months. Blood sugar per EMS and EKG were unremarkable. MD complaint: felt faint Onset (ago): hour(s) ( 1 hour ago) Prodromal symptoms: none Context: standing up Current symptoms: none History: previous syncopal episode Related Data Allergies Allergy/AdvReac Type Severity Reaction Status Date / Time sumatriptan (From Imitrex) AdvReac Mild Unknown Verified 10/14/24 10:49 lidocan Allergy Mild Hives Uncoded 10/14/24 10:49 Review of Systems Review of Systems: All systems reviewed & are unremarkable except as noted in HPI and below Constitutional: Constitutional: Reports as per HPI, Reports no additional constitutional complaints and Reports weakness Eyes: Eyes: Reports as per HPI and Reports no additional eye complaints ENT: Reports system reviewed and no additional complaints, except as documented and Reports as per HPI Cardiovascular: Cardiovascular: Reports as per HPI, Reports no additional cardiovascular complaints and Reports chest pain Comments: On Questioning he complained of chest pain which is nonradiating. Respiratory: Respiratory: Reports as per HPI and Reports no additional respiratory complaints Gastrointestinal: Gastrointestinal: Reports as per HPI, Reports no additional gastrointestinal complaints and Reports diarrhea Genitourinary: Genitourinary: Reports no additional male genitourinary complaints and Reports as per HPI Musculoskeletal: Musculoskeletal: Reports no additional musculoskeletal complaints and Reports as per HPI Integumentary/Breasts: Skin/Breast: Reports system reviewed and no additional complaints, except as docu and Reports as per HPI Neurologic: Reports system reviewed and no additional complaints, except as documented and Reports as per HPI Psychiatric: Psychiatric: Reports no additional psychiatric complaints, Reports as per HPI and Reports anxiety Endocrine: Endocrine: Reports no additional endocrine complaints and Reports as per HPI Hematologic/Lymphatic: Hematologic/Lymphatic: Reports no additional hematologic/lymphatic complaints and Reports as per HPI Allergic/Immunologic: Allergic/Immunologic: Reports no additional allergic/immunologic complaints and Reports as per HPI [facility] Past Medical History Medical History (Updated 10/14/24 @ 13:07 by Kody Reid MD) Migraines Surgical History Surgical History Hx laparoscopic cholecystectomy Social History Social History Smoking status: Current every day smoker Tobacco type: e-cigarettes/vaping Substance use: never Substance use type: does not use Do You Feel Safe in your Home?: Yes Lack of Transportation: No Lack of Food: Never True Current Housing: I Have Housing Concerned About Future Housing: Decline to Answer Difficulty Paying Gas/Electric Bills: Decline to Answer Difficulty Paying for Meds: Decline to Answer Currently Unemployed: YES Education: Decline to Answer Difficulty w/ Childcare or Family Care: No Living arrangements: with family Exam Narrative: patient is not orthostatic. Const: General: ill appearing Orientation/consciousness: patient oriented x3 Limitations: no limitations HENMT: Head: normal to inspection Ears: external ears normal Face/Nose/Sinus: Normal external nose present Face and sinus: normal facial exam Mouth: Yes Normal oral and palatal mucosa present Throat: posterior oropharynx normal Eyes: Conjunctivae: conjunctivae normal Pupils: Equal, round and reactive pupils present EOM: EOMs intact bilaterally Direct Ophthalmoscopy: no photophobia Neck: Neck: normal visual inspection, no lymphadenopathy and no meningeal signs Chest: Chest palpation & inspection: normal inspection of the chest Resp: Effort & Inspection: normal respiratory effort Auscultation: clear to auscultation bilaterally Cardio: Rate: regular rate Rhythm: regular rhythm GI: GI Palp: Yes Soft to palpation Auscultation: normal bowel sounds Rectal Exam: normal sphincter tone Other: No tenderness/ rigidity /rebound. : General: Yes no CVA tenderness Back/Spine/Pelvis: Back: no CVA tenderness Skin: General skin exam: normal color Rashes: no rashes Wounds: no wounds Neuro: General: patient oriented x3, moves all extremities, no meningeal signs, no focal motor deficits and CN's II-XI intact bilaterally Cranial nerves: Yes Nystagmus not present Speech: normal speech Other: Patient is tremulous and shaky. Extrem: General: normal to inspection and no clubbing, cyanosis or edema Psych: Affect: Anxious affect present Course Course Emergency Course: Patient presents with presyncope with lightheadedness with diaphoresis, numbness of his extremities, chest pain, abdominal pain, 1 episode of diarrhea-- patient is not orthostatic. Patient had normal blood counts, normal chemistries normal EKG an unremarkable CT of the head. patient received Xanax with significant improvement in anxiety. The patient had an elevated lactate with abdominal pain and chest pain. CT of the chest/abdomen/ pelvis did not show any acute findings. Vital Signs Vital signs: Vital Signs Temperature 36.3 C L 10/14/24 10:40 Pulse Rate 79 10/14/24 10:40 Respiratory Rate 20 10/14/24 10:40 Blood Pressure 147/94 H 10/14/24 10:40 Pulse Oximetry 100 10/14/24 10:40 Oxygen Delivery Room Air 10/14/24 10:40 Temperature 36.5 C 10/14/24 12:15 Pulse Rate 71 10/14/24 12:16 Respiratory Rate 21 H 10/14/24 12:16 Blood Pressure 129/94 H 10/14/24 12:15 Pulse Oximetry 97 10/14/24 12:16 Oxygen Delivery Room Air 10/14/24 10:40 MDM - Syncope MDM Narrative Medical decision making narrative: Panic attack anxiety Lab Data 10/14/24 11:22 10/14/24 11:22 Labs: Lab Results 10/14/24 10/14/24 Range/Units 11:13 11:22 WBC 8.0 (4.8-10.8) K/mm3 RBC 4.98 (4.70-6.10) M/mm3 Hgb 15.5 (14.0-18.0) g/dL Hct 46.9 (40.0-54.0) % MCV 94.2 (78.0-102.0) fL MCH 31.1 H (27.0-31.0) pg MCHC 33.0 (32-36) g/dL RDW 13.0 (11.6-14.4) % Plt Count 290 (150-420) K/mm3 MPV 10.6 (8.7-11.0) fl Immature Gran % (Auto) 0.5 H (0.0-0.0) % Neut % (Auto) 70.4 H (50.0-70.0) % Lymph % (Auto) 18.5 (18.0-42.0) % [place] % (Auto) 8.9 (2.0-11.0) % Eos % (Auto) 0.9 L (1.0-6.0) % Baso % (Auto) 0.8 (0.0-1.0) % Lymph # (Auto) 1.47 (1.10-4.50) K/mm3 [place] # (Auto) 0.71 (0.10-0.90) K/mm3 Eos # (Auto) 0.07 (0.02-0.50) K/mm3 Baso # (Auto) 0.06 (0.00-0.10) K/mm3 Abs Immat Gran (auto) 0.04 H (0.00-0.00) K/mm3 Absolute Neuts (auto) 5.61 (1.70-7.20) K/mm3 Absolute Nucleated RBC 0.00 (0.00-0.00) K/mm3 Nucleated RBC % 0.0 (0-0.0) % D-Dimer 0.21 (0.19-0.50) mg/L Sodium 140 (136-145) mmol/L Potassium 4.2 (3.5-5.1) mmol/L Chloride 104 (98-108) mmol/L Carbon Dioxide 25 (21-32) mmol/L Anion Gap 11 (4-12) mmol/L BUN 12 (7-18) mg/dL Creatinine 1.28 (0.70-1.30) mg/dL Estim Creat Clear Calc 61 ml/min Estimated GFR > 60 (59 - ) Glucose 106 H (70-99) mg/dL Calculated Osmolality 289 (285-295) mOsm/kg Lactic Acid 3.6 H (0.4-2.0) mmol/L Calcium 9.0 (8.5-10.1) mg/dL Magnesium 1.9 (1.8-2.4) mg/dL Total Bilirubin 0.9 (0.00-1.00) mg/dL AST 26 (15-37) U/L ALT 49 (16-63) U/L Alkaline Phosphatase 115 (46-116) U/L Troponin I < 4.0 (0.00-60.4) ng/L Total Protein 7.7 (6.4-8.2) g/dL Albumin 3.7 (3.4-5.0) g/dL Lipase 40 (16-77) U/L TSH 3.59 (0.36-3.74) uIU/mL Urine Color Light yellow (Yellow) Urine Appearance Clear (Clear) Urine pH 6.0 (5.0-8.0) Ur Specific [place] 1.010 (1.010-1.020) Urine Protein Negative (Negative) Urine Glucose (UA) Negative (Negative) Urine Ketones Negative (Negative) Ur Blood (Man) Negative (Negative) Urine Nitrate Negative (Negative) Urine Bilirubin Negative (Negative) Urine Urobilinogen 0.2 (0.2-1.0) mg/dL Leukocyte Esterase Rfl Negative (Negative) LOLA/UL Urine Opiates Screen Negative (Negative) Urine Methadone Screen Negative (Negative) Ur Barbiturates Screen Negative (Negative) Ur Phencyclidine Scrn Negative (Negative) Ur Amphetamine Screen Negative (Negative) U Benzodiazepines Scrn Negative (Negative) Urine Cocaine Screen Negative (Negative) U Cannabinoids Screen Negative (Negative) ECG Data EKG #1: ECG completion date: 10/14/24 ECG completion time: 10:54 Interpretation: Normal sinus rhythm. Normal axis. No ST-T wave changes noted. Discharge Plan Discharge Clinical Impression: Severe anxiety with panic Patient Disposition: Home Condition: Stable Instructions: Antibiotic Form, Anxiety (ED) Patient Language: Faroese Prescriptions: No Action atorvastatin 20 mg tablet 20 mg PO DAILY Qty: 90 0RF venlafaxine 75 mg capsule,extended release 24hr 75 mg PO DAILY Qty: 90 0RF Follow-up/Referrals: Buschling,Mo P., DO [Primary Care Provider] - Time of Disposition: 13:07
--- NOTE | 2024-10-14 11:12 | ECG_ITS ---
Test Date: 2024-10-14 10:54:23 Measurements Intervals Dodge Rate: 74 P: 24 MT: 155 QRS: 24 QRSD: 97 T: 16 QT: 381 QTc: 424 Interpretive Statements SINUS RHYTHM DELAYED PRECORDIAL R/S TRANSITION BORDERLINE ECG No previous ECG available for comparison Electronically Signed On 10-14-2024 11:40:08 CDT by Pool Brandt D.O.
[2024-10-14] MEDS: ALPRAZolam (*CRX) 0.5 MG TABLET PO (11:20)
[2024-10-14 11:28] LABS: Basophils Absolute Auto 0.06 K/mm3 (0.00-0.10); Basophils Percent Auto 0.8 % (0.0-1.0); Eosinophils Absolute Auto 0.07 K/mm3 (0.02-0.50); Eosinophils Percent Auto 0.9 % (1.0-6.0); Hematocrit 46.9 % (40.0-54.0); Hemoglobin 15.5 g/dL (14.0-18.0); Immature Granulocyte Absolute 0.04 K/mm3 (0.00-0.00); Immature Granulocyte Percent A 0.5 % (0.0-0.0); Lymphocytes Absolute Auto 1.47 K/mm3 (1.10-4.50); Lymphocytes Percent Auto 18.5 % (18.0-42.0); Mean Corpuscular Hemoglobin 31.1 pg (27.0-31.0); Mean Corpuscular Volume 94.2 fL (78.0-102.0); Mean Platelet Volume 10.6 fl (8.7-11.0); Monocytes Absolute Auto 0.71 K/mm3 (0.10-0.90); Monocytes Percent Auto 8.9 % (2.0-11.0); Neutrophils Absolute Auto 5.61 K/mm3 (1.70-7.20); Neutrophils Percent Auto 70.4 % (50.0-70.0); Platelet Count Result 290 K/mm3 (150-420); Red Blood Count 4.98 M/mm3 (4.70-6.10)
[2024-10-14 11:36] LABS: Add Urine Microscopic? NO; Appearance Urine Clear (Clear); Bilirubin Urine Negative (Negative); Blood Urine Negative (Negative); Color Urine Light Yellow (Yellow); Glucose Urine UA Negative (Negative); Ketones Urine Negative (Negative); Leukocyte Esterase Ur Negative LEU/UL (Negative); Nitrate Urine Negative (Negative); Protein Urine Negative (Negative); Urobilinogen Urine 0.2 mg/dL (0.2-1.0)
[2024-10-14 11:42] LABS: D Dimer 0.21 mg/L (0.19-0.50)
[2024-10-14 11:50] LABS: Lactic Acid Reflex 3.6 mmol/L (0.4-2.0)
[2024-10-14 11:56] LABS: Amphetamine Screen Urine Negative (Negative); Barbiturate Screen Urine Negative (Negative); Benzodiazepines Screen Urine Negative (Negative); Cannabinoid Screen Urine Negative (Negative); Cocaine Screen Urine Negative (Negative); Methadone Screen Urine Negative (Negative); Opiate Screen Urine Negative (Negative); Phencyclidine Screen Urine Negative (Negative)
[2024-10-14 11:57] LABS: Alanine Aminotransferase 49 U/L (16-63); Albumin Level 3.7 g/dL (3.4-5.0); Alkaline Phosphatase 115 U/L (46-116); Anion Gap 11 mmol/L (4-12); Aspartate Amino Transferase 26 U/L (15-37); Bilirubin,Total 0.9 mg/dL (0.00-1.00); Blood Urea Nitrogen 12 mg/dL (7-18); Carbon Dioxide 25 mmol/L (21-32); Chloride 104 mmol/L (98-108); Estimated CRCL calculation 61 ml/min; Estimated Glomerular Filt Rate > 60; Glucose 106 mg/dL (70-99); Lipase 40 U/L (16-77); Osmolality Calculated 289 mOsm/kg (285-295); Potassium 4.2 mmol/L (3.5-5.1); Sodium 140 mmol/L (136-145); Total Protein 7.7 g/dL (6.4-8.2)
[2024-10-14 12:01] LABS: Magnesium 1.9 mg/dL (1.8-2.4); Thyroid Stimulating Hormone 3.59 uIU/mL (0.36-3.74); Troponin I < 4.0 ng/L (0.00-60.4)
[2024-10-14] MEDS: LACTATED RINGERS 1,000 ML 999 ML IV CONT (12:09)
--- OUTSIDE RECORDS SUMMARY | 2024-10-14 12:19 | XMS_ITS | Encounter Summary ---
Author Organization [facility] Address [facility] [place] [address] Care Team Providers Care Sausage Smoker Name Role Phone Rian Barragan MD Primary Care Provider [phone] William Ramachandran MD Unavailable Unavail able Oliver Broderick MD Primary Care Provider [phone] None, Provider Primary Care Provider Unavaila ble Encounter Details Date Type Department Care Team (Late st Contact Info) Description 11/29/2018 Abstract SFL CONVERSION [address] [place] [address] , Generic Conversion, Social History Tobacco Use Types Packs/Day Years Used Date Smoking Tobacco: Every Day Smokeless Tobacco: Never Alcohol Use Standard Drinks/Week Comments Yes 0 (1 standard drink = 0.6 oz pur e alcohol) once per month Sex and Gender Information Value Date Recorded Sex Assigned at Not on file Legal Sex Male 6:08 PM CDT Gender Identity Not on file Sexual Orientation Not on file 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 Not on file Not on file documented as of this encounter Plan of Treatment Not on file documented as of this encounter Visit Diagnoses Not on filedocumented in this encounter Care Teams Sausage Smoker Relationship Specialty Start Date End Date Rian Barragan MD [address] [place] [phone] PCP - General FAMILY PRACTICE 10/22/18 12/14/18 Oliver Broderick MD [address] [place] [address] PCP - General FAMILY PRACTICE 12/15/18 11/22/19 None, Provider, PCP - General 11/23/19 William Ramachandran MD [address] [place] [address] Consulting Physician CARDIOVASCULAR DISEASE 10/22/18 documented as of this encounter
--- OUTSIDE RECORDS SUMMARY | 2024-10-14 12:19 | XMS_ITS | Clinical Summary ---
Author Organization [facility] Address [address] [place] [address] Care Team Providers Care Taper/Finisher Name Role Phone William Ramachandran MD Unavailable Unavail able None, Provider Primary Care Provider Unavaila ble Allergies Active Allergy Reactions Criticality Noted Date Comments Sumatriptan Other (see comment) 07/04/2017 Makes migraines worse Medications albuterol (2.5 MG/3ML) 0.083% nebulizer solution Inhale 1 Units into the lungs. 4 Active Ergotamine-Caffeine (CAFERGOT) 1-100 MG TabIndications:Intr actable migraine without aura and without status migrainosus One by mouth per day for severe headache. Can take a 2nd dose the same day but no more than 2 in 24 hours. 10 tablet 9 Active dihydroergotamine (MIGRANAL) 4 MG/ML nasal sprayIndications:In tractable migraine without aura and without status migrainosus 1 spray by Nasal route as needed for Migraine. Use in one nostril as directed. No more than 4 sprays in one hour 20 mL 1 9 Active ondansetron 4 MG disintegrating tablet Take 1 tablet (4 mg total) by mouth every 8 (eight) hours as needed for Nausea. 20 tablet 0 Active Active Problems Problem Noted Date Diagnosed Date Dyspnea on exertion 10/29/2018 Palpitation 10/29/2018 Family History Medical History Relation Comments Heart Disease Father Stent Cardiac Father Stroke Father Relation Status Comments Father Social History Tobacco Use Types Packs/Day Years Used Date Smoking Tobacco: Every Day Cigarettes Smokeless Tobacco: Never Tobacco Cessation:Ready to Q uit: Yes Comments:Down to 5 a day now Alcohol Use Standard Drinks/Week Comments Yes 0 (1 standard drink = 0.6 oz pur e alcohol) once per month Sex and Gender Information Value Date Recorded Sex Assigned at Not on file Legal Sex Male 6:08 PM CDT Gender Identity Not on file Sexual Orientation Not on file 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 Not on file Not on file Last Filed Vital Signs Vital Sign Reading Time Taken Comments Blood Pressure 131/77 11/23/2019 10:00 AM CDT Pulse 70 11/23/2019 8:25 AM CDT Temperature 36.6 C (97.8 F) 11/23/2019 8:25 AM CDT Respiratory Rate 20 11/23/2019 8:25 AM CDT Oxygen Saturation 100% 11/23/2019 10:00 AM CDT Inhaled Oxygen Concentration - - Weight 69.6 kg (153 lb 6.4 oz) 02/09/2019 10:31 AM CDT Height 167.6 cm (5' 6 ) 11/23/2019 8:25 AM CDT Body Mass Index 24.76 02/09/2019 10:31 AM CDT Plan of Treatment Health Maintenance Due Date Last Done Comments Annual Physical 1986 Hepatitis C 2001 DTaP, Tdap and Td Vaccines ( 1 - Tdap) 2002 Hepatitis B Vaccines (1 of 3 - 19+ 3-dose series) 2002 Pneumococcal Vaccine: Pediat rics (0 to 5 Years) and At-Risk Patients (6 to 49 Years) (1 of 2 - PCV) 2002 COVID-19 Vaccine ( - 2023-2 5 season) 2024 HPV Vaccines Aged Out No longer eligi ble based on patient's age to complete this topic Meningococcal B Vaccine Aged Out No l onger eligible based on patient's age to complete this topic Meningococcal Vaccine Aged Out No puja praveen eligible based on patient's age to complete this topic RSV Immunizations Under 20 Months Aged Out No longer eligible based on patient's age to complete this topic Insurance CIG Member Subscriber Plan / Payer (Ef fective 2018-Present) Name:Jai Moreira Jr. Relation to Subscriber:Self Name:HarishJai Jr. Payer ID:[id number] (NAIC) Type:Not on file Address: [address] [place] [id number] CIG Member Subscriber Plan / Payer (Ef fective 2018-Present) Name:Jai Moreira Jr. Relation to Subscriber:Self Name:Jai Moreira Jr. Payer ID:[id number] (NAIC) Type:Not on file Address: [facility] [id number] [place] [id number] Care Teams Taper/Finisher Relationship Specialty Start Date End Date None, Provider, PCP - General 11/23/19 William Ramachandran MD Consulting Physician CARDIOVASCULAR DISEASE 10/22/18
--- OUTSIDE RECORDS SUMMARY | 2024-10-14 13:05 | XMS_ITS | Encounter Summary ---
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 Not on file documented as of this encounter Plan of Treatment Not on file documented as of this encounter Visit Diagnoses Not on filedocumented in this encounter Care Teams Cardiologist Relationship Specialty Start Date End Date Rian Barragan MD [address] [place] [phone] PCP - General FAMILY PRACTICE 10/22/18 12/14/18 Oliver Broderick MD [address] [place] [address] PCP - General FAMILY PRACTICE 12/15/18 11/22/19 None, Provider, PCP - General 11/23/19 William Ramachandran MD [address] [place] [address] Consulting Physician CARDIOVASCULAR DISEASE 10/22/18 documented as of this encounter
--- OUTSIDE RECORDS SUMMARY | 2024-10-14 13:05 | XMS_ITS | Clinical Summary ---
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 Relation to Subscriber:Self Name:Jai Moreira Jr. Payer ID:[id number] (NAIC) Type:Not on file Address: [facility] [id number] [place] [phone] Care Teams Alligator Hunter Relationship Specialty Start Date End Date None, Provider, PCP - General 11/23/19 William Ramachandran MD Consulting Physician CARDIOVASCULAR DISEASE 10/22/18
[2024-10-14 13:24] LABS: Reflex Lactic Acid Yes or No Add Lactic
== END 2024-10-14 13:15 | disposition home or self-care (01) ==
PROVIDERS: Emergency Provider Internal Medicine Critical Care Medicine; PCP Family Medicine
DX: F41.0 Panic disorder [episodic paroxysmal anxiety] (principal); F17.290 Nicotine dependence, other tobacco product, uncomplicated; W18.30XA Fall on same level, unspecified, initial encounter
CPT/HCPCS: 36415; 70450; 71260; 74177; 80053; 80307; 81003; 83605; 83690; 83735; 84443; 84484; 85025; 85380; 93005; 96360; 99284; A9270; J7120; Q9967

== ENCOUNTER 2024-10-20 15:47 | Outpatient (CLI) | payer OTHER, SELFPAY ==
--- NOTE | 2024-11-11 14:42 | WPDHOLTEREM ---
Holter/Event Monitor Holter/Event Monitor Date of procedure: 10/20/24 Holter/Event Procedure: Event Monitor Indications: Syncope Conclusion: 1. 14 days event monitor on 10/20/24. 2. Underlying rhythm is sinus rhythm. HR range 51-175 bpm; average HR 84 bpm. HR at 175 bpm was on 10/23/24 at 5:13 pm. 3. There are rare premature supraventricular complexes. No supraventricular tachycardia. 4. There are rare premature ventricular complexes and rare ventricular couplets. No ventricular tachycardia. 5. No significant pauses greater than 3 seconds. 6. Patient reports 17 episodes of symptoms of lightheadedness, shortness of breath, chest pain, racing which demonstrate sinus rhythm, HR range 68-112 bpm.
== END 2024-10-20 15:48 | disposition home or self-care (01) ==
LOC: CHSCARD 15:48
PROVIDERS: PCP Family Medicine; Visit Provider Family Medicine
DX: R55 Syncope and collapse (principal)
CPT/HCPCS: 93270

== ENCOUNTER 2024-12-21 00:17 | Day surgery (SDC) | payer OTHER, SELFPAY ==
[2024-12-18 14:38] VITALS: BMI 26.3
--- NOTE | 2024-12-18 14:49 | PC.NURSE ---
Report to the Outpatient Waiting Room, entrance under the green pavilion located off [facility], at time _1200_ on date _[id number]_. Planned Procedure Time: _1pm_.? Time changes happen often and if your time is changed the preop area will call you the afternoon before. - You and your visitor will be asked to self-screen and do not enter if you have any COVID symptoms. Please call surgeon if you need to reschedule. - A mask is optional within the hospital at this time. no smoking, or chewing tobacco (or any form of nicotine). No chewing gum, candy or mints. OK for light breakfast. Nothing to eat or drink after 11am Take only the following medications with a SIP of water on the morning of surgery: __Take medications as usual ____ DO NOT STOP ANY OF YOUR OTHER PRESCRIPTION MEDICATIONS PRIOR TO SURGERY EXCEPT THE FOLLOWING Hold all vitamins and supplements for 3 days per anesthesiologist. Medications to discontinue per physician ____None____ Date to take last dose____ Please no make-up, nail yakut, hairspray, perfume, deodorant, or body powder the day of surgery.? No jewelry (including any body piercings) or valuables the day of surgery, leave them at home.? Please take a shower or bath the night before, or the morning of, surgery with an antibacterial soap.? Wear comfortable, loose fitting clothing.? - Jewelry must be removed prior to entering the operating room.? Rings and piercings that are not removed may be cut off. - The hospital will not accept responsibility for valuables.? - Please leave all valuables, including medications, at home the day of surgery. If you are going home after surgery, a licensed limb driver must drive you home.? - NO public transportation without another adult if you receive anesthesia. - We also recommend that you do not drive, make important decision, drink alcoholic beverages, or take any drugs that were not prescribed by your health care provider for at least 24 hours after your discharge time. Follow any additional instructions given to you from your surgeon. Telephone instructions given to __Darin__and asked if any additional questions and then verbalized understanding. Patient advised to call surgeon office or pre surgery nurse liaison [phone] if any additional questions.
--- NOTE | ~2024-12-21 | XR_ITS ---
EXAMINATION: XR fluoroscopy no charge DATE: 12/21/2024 13:00 CDT INDICATION: .T L3 L4 L5 MED FRANCES RAMUS LT L4 L5 S1 FACET JOINTS . TECHNIQUE: 7 fluoroscopic images of the lumbar spine were obtained during L3, L4, and L5 medial branc h and dorsal ramus nerve block. Fluoroscopy exposure time was 38.8 seconds. Air Kerma 1.8502 mGy. DAP 11.232 mGym2. COMPARISON: 06/02/2024 FINDINGS/IMPRESSION: Fluoroscopic documentation of L3, L4, and L5 medial branch and dorsal ramus nerve block. Please refer to the operative note for complete procedural details. Reviewed, dictated and finalized at location K.
[2024-12-21 12:01] VITALS: BMI 26.4
--- NOTE | 2024-12-21 12:12 | PM.HPGS ---
History of Present Illness History of Present Illness Consent: Risks, benefits, and alternatives have been discussed and questions answered. Patient agrees to proceed with procedure. Chief complaint: Lumbosacral Spondylosis, chronic low back pain Narrative: Jai Moreira Jr. is a 39 year old male with chronic, recalcitrant and disabling left lumbosacral back pain secondary to degenerative spondylosis with failure to respond to aggressive conservative measures including PT, oral and topical analgesics, opioid and nonopioid analgesics, rest, time and activity/behavioral modification over the past 1-2 years who presents for diagnostic/prognostic medial branch blocks of the left L3, L4, L5 medial branches/dorsal ramus(# 2) addressing the left L4-5, L5-S1 facet joints under fluoroscopic guidance and with contrast control. Review of Systems Review of Systems: All systems reviewed & are unremarkable except as noted in HPI and below PMFSH Past Medical History Medical History Abdominal pain Migraines Surgical History Surgical History Hx laparoscopic cholecystectomy Social History Social History Years smoked: 23 Smoking status: Current every day smoker Tobacco type: cigarettes Alcohol intake: current Substance use: never Substance use type: does not use Do You Feel Safe in your Home?: Yes Lack of Transportation: No Lack of Food: Never True Current Housing: I Have Housing Concerned About Future Housing: Decline to Answer Difficulty Paying Gas/Electric Bills: Decline to Answer Difficulty Paying for Meds: Decline to Answer Currently Unemployed: YES Education: Decline to Answer Difficulty w/ Childcare or Family Care: No Living arrangements: with family Spiritual care concerns: No Meds Home Medications and Allergies Home Medications ?Medication ?Instructions ?Recorded ?Confirmed ?Type atorvastatin 20 mg tablet 20 mg PO DAILY #90 tabs 10/16/24 12/18/24 Rx venlafaxine 75 mg capsule,extended 75 mg PO DAILY #90 caps 10/16/24 12/18/24 Rx release 24 hr diazepam 5 mg tablet (Valium) 5 mg PO BID PRN anxiety 10 days 11/08/24 12/18/24 Rx #20 tabs amitriptyline 10 mg tablet 30 mg (3 x 10 mg) PO QHS #100 tabs 11/24/24 12/18/24 Rx cholestyramine 4 gram oral powder 4 g PO BID #60 ea 11/24/24 12/18/24 Rx for suspension in a packet omeprazole 40 mg capsule,delayed 40 mg PO DAILY #30 caps 11/24/24 12/18/24 Rx release Allergies Allergy/AdvReac Type Severity Reaction Status Date / Time sumatriptan (From Imitrex) AdvReac Mild Unknown Verified 12/18/24 14:37 lidocan Allergy Mild Hives Uncoded 12/18/24 14:37 Exam Narrative: The patient's physical exam is essentially unchanged from prior examination on 10/12/2024. Specifically, patient demonstrates normal lung capacity, tidal volume and respiratory rate without wheezes, crackles, rales or rubs. Heart rate and rhythm are regular without murmurs, gallops or rubs. No JVD. Pulses 2+ globally without increasing peripheral edema. AAOx3 with no evidence of confusion, intoxication or altered mental state, NC/AT without acute distress or altered consciousness. Speech, cognition, mood, insight and judgment at baseline and within normal limits. Assessment and Plan Assessment and plan (1) Lumbosacral spondylosis: Code(s): M47.817 - Spondylosis without myelopathy or radiculopathy, lumbosacral region Status: Acute Assessment and Plan: Proceed as planned with diagnostic/prognostic medial branch blocks of the left L3, L4, L5 medial branches/dorsal ramus(# 2) addressing the left L4-5, L5-S1 facet joints under fluoroscopic guidance and with contrast control. (2) Chronic low back pain: Code(s): M54.50 - Low back pain, unspecified; G89.29 - Other chronic pain Status: Acute
--- NOTE | 2024-12-21 12:15 | P.OP_ITS ---
Procedure Note - Detailed Date of Procedure 12/21/24 Pre-op Diagnosis Lumbosacral Spondylosis, chronic low back pain Post-op Diagnosis Same Procedure Performed Diagnostic Bilateral Lumbar Medial Branch/Dorsal Ramus Blocks at L3, L4, L5 T reating the bilateral L4-5, L5-S1 Facet Joints Under Fluoroscopic Guidance and with Contrast Control. (4 levels blocked). Surgeon Omega Valiente MD [employer] Machine Operator None. Anesthesia Local Description of Procedure INFORMED CONSENT: Risks, benefits and alternatives to the procedure were discussed in detail with the patient who expressed explicit understanding and consent to proceed. Patient was informed verbally and in written form regarding the risks associated with the procedure including the low risk of serious infection, bleeding/bruising, allergic reaction, nerve or organ injury, paralysis, procedural site pain or discomfort, worsening pain and/or mobility, failure to treat and/or disfigurement. The patient expressed explicit understanding and consent to proceed. All materials required for the procedure were available prior to procedure start. Site and side were marked prior to procedure and confirmed in the presence of the patient. PROCEDURE IN DETAIL: The patient was brought to the procedural suite and placed in the prone position. Patient was made comfortable with use of pillows under the head/chest, hips and ankles. Skin overlying the injection site on the affected side(s) was prepared broadly with ChloraPrep applicator and draped in a sterile manner. Aseptic technique was used throughout. The endplates of the vertebral bodies at the site(s) of interest were aligned in the AP view. Ipsil ateral oblique angulation was utilized to optimize visualization of the intersection between the superior articulating process and transverse process at each target site. Local anesthesia was established by infiltration with approximately 5 mL of 1% lidocaine via a 1-1/2 inch 27-gauge needle. A 25-gauge 3.5 inch Quincke spinal needle was advanced until the needle tip contacted periosteum at the target site, left L3. Lateral view was utilized to confirm the appropriate placement of the needle tip just anterior to the facet line and superior to the pedicle. In the Lateral view, 0.25 mL of Omnipaque 300 contrast medium was injected after negative aspiration for CSF, blood or other bodily fluid, showing appropriate extra-articular spread of contrast without evidence of intravascular, foraminal or intrathecal placement. A 0.5 mL solution of 2.0% PF was injected after negative repeat aspiration. Appropriate spread of the injectate was confirmed with washout of previously injected contrast. No parasthesias were elicited. Needle was removed completely intact without difficulty. The same exact procedure was repeated for all remaining levels on the ipsilateral side, left L4, L5 medial branches/dorsal ramus, modified as necessary to accommodate for the new target location with identical findings and results and no evidence of complication. The same exact procedure was repeated for all remaining levels on the contralateral side, right L3, L4, L5 medial branches/dorsal ramus, modified as necessary to accommodate for the new target location with identical findings and results and no evidence of complication. Images were saved and documented in the patient chart. Patient's skin was cleaned and sterile bandage applied. The patient tolerated the procedure well. The patient was transported to the recovery area in stable condition where they were observed for an appropriate amount of time prior to discharge, without evidence of complication. Patient was instructed on the appropriate completion of a pain diary over the next 12-24 hours. The patient was instructed to avoid excessive activity for the next 48 hours, including climbing and frequent use of stairs. Showers only for 48 hours. They were instructed not to drive or operate heavy machinery for 24 hours. They are to monitor for severe headaches, fevers, chills, night sweats, erythema/swelling at the site or any other signs of infection, bleeding/bruising, bowel or bladder changes as well as new pain, weakness or numbness in the upper or lower extremity. Should they notice these changes, they are instructed to call our office immediately or report directly to the nearest Emergency Department if no answer or if after posted office hours. COMPLICATIONS: None COMMENTS: None CONTRAST WASTED: 28.5 mL Omnipaque 300. Complications No immediate complications Condition Stable Disposition Same day [facility] Billing Surgery - Charge Forward: Surgery Billing
--- NOTE | 2024-12-21 12:15 | WPDHPUPDATE1 ---
History and Physical Update Update Date/Time: 12/21/24 12:15 History and Physical has been reviewed, including an updated exam of the patient. There are NO changes in the patient's condition. Risks, benefits, and alternatives have been discussed and questions answered. Patient agrees to proceed with procedure.
[2024-12-21 13:03] VITALS: BP 138/81; PULSE 91; RESP 20; O2SAT 99
[2024-12-21 13:13] VITALS: BP 125/81; PULSE 82; RESP 14; O2SAT 99
[2024-12-21] MEDS: LIDOCAINE 1% LOCAL INJ 10 ML VIAL 5 ML INFILTRATE (13:15)
[2024-12-21] MEDS: LIDOCAINE 2% PF LOCAL INJ 5 ML VIAL INFILTRATE (13:15)
[2024-12-21 13:18] VITALS: BP 121/89; PULSE 82; RESP 16; O2SAT 97
== END 2024-12-21 13:34 | disposition home or self-care (01) ==
PROVIDERS: PCP Family Medicine; Visit Provider Anesthesiology Pain Medicine
PROC: (CPT 64493; principal; 2024-12-21 13:00)
DX: M47.817 Spondylosis without myelopathy or radiculopathy, lumbosacral region (principal); M54.50 Low back pain, unspecified; G89.29 Other chronic pain; F17.210 Nicotine dependence, cigarettes, uncomplicated
CPT/HCPCS: 64493; 64494 ×2; 64495 ×2; 99199; J2003; Q9965

== ENCOUNTER 2025-02-05 07:17 | Day surgery (SDC) | payer OTHER, SELFPAY ==
[2025-01-22 09:57] VITALS: BMI 25.9
[2025-02-05 10:32] VITALS: BP 133/96; PULSE 94; RESP 19; TEMP 36.3; O2SAT 100
[2025-02-05] MEDS: LACTATED RINGERS 1,000 ML 150 ML IV CONT (10:41)
--- NOTE | 2025-02-05 10:45 | P.PNAN_ITS ---
Anes - Initial Pre Proc Eval Procedure: Operation Date: 02/05/25 14:30 Proposed Procedures p Diagnostic Colonoscopy - Kenneth Loco MD Date/Time: 02/05/25 10:45 Surgeon: Kenneth Loco MD Pre Op Diagnosis: Family history of malignant neoplasm of digestive Patient Data Age: 39 Gender: M Height: 1.68 m Weight: 74.3 kg Last Vital Signs Temp 97.4 F L 02/05/25 10:32 Pulse 94 02/05/25 10:32 Resp 19 02/05/25 10:32 BP 133/96 H 02/05/25 10:32 Pulse Ox 100 02/05/25 10:32 O2 Del Method Room Air 02/05/25 10:32 Allergies Allergy/AdvReac Type Severity Reaction Status Date / Time sumatriptan (From Imitrex) AdvReac Mild Unknown Verified 02/05/25 10:31 lidocan Allergy Mild Hives Uncoded 02/05/25 10:31 Home Medications ?Medication ?Instructions ?Recorded ?Confirmed ?Type atorvastatin 20 mg tablet 20 mg PO DAILY #90 tabs 10/16/24 02/05/25 Rx venlafaxine 75 mg capsule,extended 75 mg PO DAILY #90 caps 10/16/24 02/05/25 Rx release 24 hr amitriptyline 10 mg tablet 30 mg (3 x 10 mg) PO QHS #100 tabs 11/24/24 02/05/25 Rx cholestyramine 4 gram oral powder 4 g PO BID #60 ea 11/24/24 01/22/25 Rx for suspension in a packet diazepam 5 mg tablet (Valium) 5 mg PO BID PRN anxiety 10 days 12/29/24 01/22/25 Rx #20 tabs omeprazole 40 mg capsule,delayed See Rx Instructions .Route 01/28/25 02/05/25 Rx release .COMPLEX #30 ea Patient hx anesthesia problems: none Family hx anesthesia problems: none Results Review: All pre-operative results and documents have been reviewed as part of the pre- operative evaluation. [facility] Past Medical History Medical History Abdominal pain Migraines Surgical History Surgical History Hx laparoscopic cholecystectomy Social History Social History Years smoked: 23 Smoking status: Current every day smoker Tobacco type: cigarettes Alcohol intake: current Drinks per week: 5 Substance use: never Substance use type: does not use Do You Feel Safe in your Home?: Yes Lack of Transportation: No Lack of Food: Never True Current Housing: I Have Housing Concerned About Future Housing: Decline to Answer Difficulty Paying Gas/Electric Bills: Decline to Answer Difficulty Paying for Meds: Decline to Answer Currently Unemployed: YES Education: Decline to Answer Difficulty w/ Childcare or Family Care: No Living arrangements: with family Spiritual care concerns: No Anes - Eval Final PreProcedure Day of Procedure 02/05/25 10:45 Patient weight: normal Lungs: normal air movement Airway: Mallampati scale class II Last oral intake: >/= 8 hours ASA classification: II Emergent: no Anesthetic plan: proceed Anesthesia type and monitoring: general GIVS and standard monitoring Results Review: All pre-operative results and documents have been reviewed as part of the pre- operative evaluation. Hyperlipidemia. Smoker 1/2 ppd for 20 + years. Informed Consent: The patient's anesthetic plan and its attendant risks and benefits were discussed with the patient/family/POA. Questions were solicited and answers provided to the satisfaction of the patient/family/POA.
--- NOTE | 2025-02-05 10:58 | PM.HPGS ---
History of Present Illness History of Present Illness Consent: Risks, benefits, and alternatives have been discussed and questions answered. Patient agrees to proceed with procedure. Chief complaint: Family history of malignant neoplasm of digestive Narrative: Jai Moreira Jr. is a 39 year old male here for colonoscopy, had one about 12 years ago, recently with intermittent lower abdominal pain and father had colon cancer. Review of Systems Review of Systems: All systems reviewed & are unremarkable except as noted in HPI and below PMFSH Past Medical History Medical History Abdominal pain Migraines Surgical History Surgical History Hx laparoscopic cholecystectomy Social History Social History Years smoked: 23 Smoking status: Current every day smoker Tobacco type: cigarettes Alcohol intake: current Drinks per week: 5 Substance use: never Substance use type: does not use Do You Feel Safe in your Home?: Yes Lack of Transportation: No Lack of Food: Never True Current Housing: I Have Housing Concerned About Future Housing: Decline to Answer Difficulty Paying Gas/Electric Bills: Decline to Answer Difficulty Paying for Meds: Decline to Answer Currently Unemployed: YES Education: Decline to Answer Difficulty w/ Childcare or Family Care: No Living arrangements: with family Spiritual care concerns: No Meds Home Medications and Allergies Home Medications ?Medication ?Instructions ?Recorded ?Confirmed ?Type atorvastatin 20 mg tablet 20 mg PO DAILY #90 tabs 10/16/24 02/05/25 Rx venlafaxine 75 mg capsule,extended 75 mg PO DAILY #90 caps 10/16/24 02/05/25 Rx release 24 hr amitriptyline 10 mg tablet 30 mg (3 x 10 mg) PO QHS #100 tabs 11/24/24 02/05/25 Rx cholestyramine 4 gram oral powder 4 g PO BID #60 ea 11/24/24 01/22/25 Rx for suspension in a packet diazepam 5 mg tablet (Valium) 5 mg PO BID PRN anxiety 10 days 12/29/24 01/22/25 Rx #20 tabs omeprazole 40 mg capsule,delayed See Rx Instructions .Route 01/28/25 02/05/25 Rx release .COMPLEX #30 ea Allergies Allergy/AdvReac Type Severity Reaction Status Date / Time sumatriptan (From Imitrex) AdvReac Mild Unknown Verified 02/05/25 10:31 lidocan Allergy Mild Hives Uncoded 02/05/25 10:31 Vital Signs Vital Signs - 24 hr 02/05/25 10:32 Temperature 97.4 F L Pulse Rate 94 Respiratory Rate 19 Blood Pressure 133/96 H Pulse Oximetry 100 Oxygen Delivery Room Air Exam Const: General: comfortable and no acute distress HENMT: Face/Nose/Sinus: Normal nares present Eyes: General: appearance normal, both eyes and all related structures Neck: Neck: no JVD Resp: Auscultation: clear to auscultation bilaterally Cardio: Rate: regular rate Rhythm: regular rhythm GI: Inspection: non-distended GI Palp: Yes Soft to palpation Skin: General skin exam: normal color Neuro: General: gait normal Speech: normal speech Extrem: General: normal to inspection Psych: Mental Status: mental status grossly normal Assessment and Plan Assessment and plan (1) Family history of colon cancer: Code(s): Z80.0 - Family history of malignant neoplasm of digestive organs Status: Acute Assessment and Plan: colonoscopy (2) Abdominal pain: Code(s): R10.9 - Unspecified abdominal pain Status: Acute
[2025-02-05 11:10] VITALS: BP 125/73; PULSE 92; RESP 22; O2SAT 99
--- NOTE | 2025-02-05 11:10 | S_PTH ---
PATIENT: Jai Moreira Jr. LOC: [facility] Lenz#:[id number] AGE/SX: 39/M ROOM: RE02/05/[address]: Kenneth Loco MD : 1985 BED: DIS: 02/05/2025 SPEC #: [id number] RECD: 02/05/25 13:07 STATUS: AYANNA REJosse #: [id number] CHANDRAKANT: 02/05/25 11:[address]: Kenneth Loco DEPT: [facility] Surgical RECD BY: Shoaib Medina ENTERED: 02/05/25 13:07 SP TYPE: Surgical OTHR DR: Mo Abrams DO Tissues: A - Colon Polypectomy Procedures: Hematoxylin and Eosin Stain Gross and Microscopic Level 4
[2025-02-05 11:20] VITALS: BP 116/58; PULSE 89; RESP 21; O2SAT 97
[2025-02-05 11:30] VITALS: BP 116/84; PULSE 85; RESP 25; O2SAT 99
== END 2025-02-05 11:36 | disposition home or self-care (01) ==
PROVIDERS: PCP Family Medicine; Visit Provider Internal Medicine Gastroenterology
PROC: 0DJD8ZZ Inspection of Lower Intestinal Tract, Via Natural or Artificial Opening Endoscopic (ICD-10-PCS; CPT 45378; principal; 2025-02-05 14:30)
DX: D12.0 Benign neoplasm of cecum (principal); E78.5 Hyperlipidemia, unspecified; F17.210 Nicotine dependence, cigarettes, uncomplicated; Z90.49 Acquired absence of other specified parts of digestive tract; Z80.0 Family history of malignant neoplasm of digestive organs
CPT/HCPCS: 45385; 88305; J2704; J7120

== ENCOUNTER 2025-02-16 01:23 | Day surgery (SDC) | payer OTHER, SELFPAY ==
--- NOTE | 2025-02-05 14:19 | PC.NURSE ---
Report to the Outpatient Waiting Room, entrance under the green pavilion located off [facility], at time _0730_ on date _24-00-4120_. Planned Procedure Time: _0930_.? Time changes happen often and if your time is changed the preop area will call you the afternoon before. - You and your visitor will be asked to self-screen and do not enter if you have any COVID symptoms. Please call surgeon if you need to reschedule. - A mask is optional within the hospital at this time. - No food drink from midnight until time of surgery and no smoking, or chewing tobacco (or any form of nicotine). No chewing gum, candy or mints. Take only the following medications with a SIP of water on the morning of surgery: __Venlafaxine and if needed Diazepam___ DO NOT STOP ANY OF YOUR OTHER PRESCRIPTION MEDICATIONS PRIOR TO SURGERY EXCEPT THE FOLLOWING Hold all vitamins and supplements for 3 days per anesthesiologist. Medications to discontinue per physician Date to take last dose Please no make-up, nail [place], hairspray, perfume, deodorant, or body powder the day of surgery.? No jewelry (including any body piercings) or valuables the day of surgery, leave them at home.? Please take a shower or bath the night before, or the morning of, surgery with an antibacterial soap.? Wear comfortable, loose fitting clothing.? - Jewelry must be removed prior to entering the operating room.? Rings and piercings that are not removed may be cut off. - The hospital will not accept responsibility for valuables.? - Please leave all valuables, including medications, at home the day of surgery. If you are going home after surgery, a licensed local company refrigerated truck driver must drive you home.? - NO public transportation without another adult if you receive anesthesia. - We recommend that an adult stay with you for 24 hours following discharge. - We also recommend that you do not drive, make important decision, drink alcoholic beverages, or take any drugs that were not prescribed by your health care provider for at least 24 hours after your discharge time. Follow any additional instructions given to you from your surgeon. Telephone instructions given to __Jai___and asked if any additional questions and then verbalized understanding. Patient advised to call surgeon office or pre surgery nurse liaison [phone] if any additional questions.
[2025-02-05 14:27] VITALS: BMI 26.4
--- NOTE | ~2025-02-16 | XR_ITS ---
XR fluoroscopy no charge Indication: Bilateral ablation at L3, L4 and L5 TECHNIQUE: Fluoroscopy used during Bilateral ablation at L3, L4 and L5 performed by [Omega Valiente MD] on 02/16/2025. 1 minute 2 seconds fluoroscopy time with 6 fluoroscopic images captured. FINDINGS: Correlate with procedure note. IMPRESSION: Fluoroscopy used during Bilateral ablation at L3, L4 and L5. Reviewed, dictated and finalized at location O.
--- OUTSIDE RECORDS SUMMARY | 2025-02-16 01:26 | XMS_ITS | Encounter Summary ---
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 Not on file Not on file documented as of this encounter Plan of Treatment Not on file documented as of this encounter Visit Diagnoses Not on filedocumented in this encounter Care Teams Paper Latcher Relationship Specialty Start Date End Date Rian Barragan MD [address] [place] [phone] PCP - General FAMILY PRACTICE 10/22/18 12/14/18 Oliver Broderick MD [address] [place] [address] PCP - General FAMILY PRACTICE 12/15/18 11/22/19 None, Provider, PCP - General 11/23/19 William Ramachandran MD [address] [place] [address] Consulting Physician CARDIOVASCULAR DISEASE 10/22/18 documented as of this encounter
[2025-02-16 08:00] VITALS: BP 125/80; PULSE 81; RESP 16; TEMP 36.5; O2SAT 100
--- NOTE | 2025-02-16 08:52 | WPDANESEPPF ---
Anes - Initial Pre Proc Eval Procedure: Operation Date: 02/16/25 09:30 Proposed Procedures p Thermal Radiofrequency Ablation of the Bilateral L3, L4, L5 Medial Branches /Dorsal Rami supplying the Bilateral L4-5, L5-S1 Facet Joints Under Fluoroscopic Guidance - Omega Valiente MD Date/Time: 02/16/25 08:52 Surgeon: Omega Valiente MD Pre Op Diagnosis: Spondylosis without myelopathy or radiculopathy, Patient Data Age: 39 Gender: M Height: 1.68 m Weight: 75.95 kg Last Vital Signs Temp 36.5 C 02/16/25 08:00 Pulse 81 02/16/25 08:00 Resp 16 02/16/25 08:00 BP 125/80 02/16/25 08:00 Pulse Ox 100 02/16/25 08:00 O2 Del Method Room Air 02/16/25 08:00 Allergies Allergy/AdvReac Type Severity Reaction Status Date / Time lidocaine Allergy Mild lidocaine Verified 02/16/25 09:32 patches=Hives sumatriptan (From Imitrex) AdvReac Mild Migraine Verified 02/16/25 07:39 Home Medications ?Medication ?Instructions ?Recorded ?Confirmed ?Type atorvastatin 20 mg tablet 20 mg PO DAILY #90 tabs 10/16/24 02/16/25 Rx venlafaxine 75 mg capsule,extended 75 mg PO DAILY #90 caps 10/16/24 02/16/25 Rx release 24 hr amitriptyline 10 mg tablet 30 mg (3 x 10 mg) PO QHS #100 tabs 11/24/24 02/16/25 Rx cholestyramine 4 gram oral powder 4 g PO BID #60 ea 11/24/24 02/16/25 Rx for suspension in a packet diazepam 5 mg tablet (Valium) 5 mg PO BID PRN anxiety 10 days 12/29/24 02/16/25 Rx #20 tabs omeprazole 40 mg capsule,delayed See Rx Instructions .Route 01/28/25 02/16/25 Rx release .COMPLEX #30 ea Patient hx anesthesia problems: none Family hx anesthesia problems: none Results Review: All pre-operative results and documents have been reviewed as part of the pre-operative evaluation. [facility] Past Medical History Medical History (Updated 02/16/25 @ 08:52 by Sim Vasquez DO) Asthma Severe anxiety with panic Chronic low back pain Hyperlipidemia Abdominal pain Migraines Surgical History Surgical History Hx laparoscopic cholecystectomy Social History Social History Years smoked: 23 Smoking status: Current every day smoker Tobacco type: cigarettes Alcohol intake: current Drinks per week: 5 Substance use: never Substance use type: does not use Do You Feel Safe in your Home?: Yes Lack of Transportation: No Lack of Food: Never True Current Housing: I Have Housing Concerned About Future Housing: Decline to Answer Difficulty Paying Gas/Electric Bills: Decline to Answer Difficulty Paying for Meds: Decline to Answer Currently Unemployed: YES Education: Decline to Answer Difficulty w/ Childcare or Family Care: No Living arrangements: with family Spiritual care concerns: No Anes - Eval Final PreProcedure Day of Procedure 02/16/25 08:52 Patient weight: overweight Heart: regular rate and rhythm Lungs: clear to auscultation Airway: Mallampati scale class II Neurological: alert and oriented Last oral intake: >/= 8 hours ASA classification: III Emergent: no Anesthetic plan: proceed Anesthesia type and monitoring: general ETT and standard monitoring Results Review: All pre-operative results and documents have been reviewed as part of the pre-operative evaluation. Informed Consent: The patient's anesthetic plan and its attendant risks and benefits were discussed with the patient/family/POA. Questions were solicited and answers provided to the satisfaction of the patient/family/POA.
--- NOTE | 2025-02-16 08:58 | WPDHPUPDATE1 ---
History and Physical Update Update Date/Time: 02/16/25 08:58 History and Physical has been reviewed, including an updated exam of the patient. There are NO changes in the patient's condition. Risks, benefits, and alternatives have been discussed and questions answered. Patient agrees to proceed with procedure.
--- NOTE | 2025-02-16 08:59 | P.OP_ITS ---
Procedure Note - Detailed Date of Procedure 02/16/25 Pre-op Diagnosis Spondylosis without myelopathy or radiculopathy, chronic low back pain Post-op Diagnosis Same Procedure Performed Thermal Radiofrequency Ablation of the bilateral Lumbar Medial Branches/Dorsal Ramus at the L3, L4, L5 Levels Treating the bilateral L4-5, L5-S1 Facet Joints Under Fluoroscopic Guidance (4 Levels Treated). Surgeon Omega Valiente MD Pv [employer] And Installation Technician None. Anesthesia Local (w/ MAC) Description of Procedure INFORMED CONSENT: Risks, benefits and alternatives to the procedure were discussed in detail with the patient who expressed explicit understanding and consent to proceed. Patient was informed verbally and in written form regarding the risks associated with the procedure including the low risk of serious infection, bleeding/bruising, allergic reaction, nerve or organ injury, paralysis, procedural site pain or discomfort, worsening pain and/or mobility, failure to treat and/or disfigurement. The patient expressed explicit understanding and consent to proceed. All materials required for the procedure were available prior to procedure start. Site and side were marked prior to procedure and confirmed in the presence of the patient. PROCEDURE IN DETAIL: The patient was brought to the procedural suite and placed in the prone position. Patient was made comfortable with use of pillows under the head/chest, hips and ankles. ASA standard monitors were applied and used throughout the procedure. Skin overlying the injection site on the affected side(s) was prepared broadly with ChloraPrep applicator and draped in a sterile manner. Aseptic technique was used throughout. The endplates of the vertebral bodies at the site(s) of interest were aligned in the AP view. Ipsilateral oblique angulation was utilized to optimize visualization of the intersection between the superior articulating process and transverse process at each target site. Local anesthesia was established by infiltration with approximately 5 mL of 1% lidocaine via a 1-1/2 inch 27-gauge needle divided over each site treated. A 16-gauge 150 mm [employer] RF needle with curved 10mm active tip was advanced in the AP view until the needle tip contacted the periosteum at the target site, the right L3 medial branch. Lateral view was utilized to adjust and confirm the appropriate placement of the needle tip just anterior to the facet line, superior to the pedicle and posterior to the foramen. Grounding electrode was in place and functioning. The appropriately-sized RF cannula was inserted into the RF needle and motor stimulation was performed with no subjective or objective evidence of recruited muscle activity with stimulation up to 2.0 volts at a frequency of 2Hz. 1.5 mL of 2.0% PF lidocaine was injected after negative aspiration. After a 90s pause, lesioning was performed to 90 degrees centigrade for 90s ensuring lack of symptoms in the extremity throughout. Needle was rotated 180 degrees and lesioning repeated in a similar manner. Patient tolerated this well. No paresthesias were elicited. Needle was removed completely intact without difficulty. The same procedure was repeated for all intended levels/ structures on the ipsilateral side, right L4, L5 medial branch/dorsal ramus with identical methodology, modified to compensate for new location, with similar results and no evidence of complication. The same exact procedure was repeated for all remaining levels on the contralateral side, left L3, L4, L5 medial branches/dorsal ramus, modified as necessary to accommodate for the new target location with identical findings/results and no evidence of complication. Images were saved and documented in the patient chart. Patient's skin was cleansed and sterile bandage applied. The patient tolerated the procedure well. The patient was transported to the recovery area in stable condition where they were observed for an appropriate amount of time prior to discharge, without evidence of complication. The patient was instructed to avoid excessive activity for the next 48 hours, including climbing and frequent use of stairs. Showers only for 48 hours. They were instructed not to drive or operate heavy machinery for 24 hours. They are to monitor for severe headaches, fevers, chills, night sweats, erythema/swelling at the site or any other signs of infection, bleeding/bruising, bowel or bladder changes as well as new pain, weakness or numbness in the upper or lower extremity. Should they notice these changes, they are instructed to call our office immediately or report directly to the nearest Emergency Department if no answer or if after posted office hours. COMPLICATIONS: None COMMENTS: None Complications No immediate complications Condition Stable Disposition PACU [facility] Billing Surgery - Charge Forward: Surgery Billing
[2025-02-16] MEDS: LIDOCAINE 2% PF LOCAL INJ 5 ML VIAL 10 ML INFILTRATE (09:27)
[2025-02-16] MEDS: LIDOCAINE 1% PF INJ 5 ML VIAL INFILTRATE (09:29)
[2025-02-16 09:47] VITALS: BP 119/87; PULSE 84; RESP 16; O2SAT 96
[2025-02-16] MEDS: LACTATED RINGERS 1,000 ML 30 ML IV CONT (09:47)
[2025-02-16 10:05] VITALS: BP 132/93; PULSE 83; RESP 16; O2SAT 97
[2025-02-16 10:20] VITALS: BP 133/91; PULSE 83; RESP 14
== END 2025-02-16 10:26 | disposition home or self-care (01) ==
PROVIDERS: PCP Family Medicine; Visit Provider Anesthesiology Pain Medicine
PROC: (CPT 64635; principal; 2025-02-16 09:30)
DX: M47.817 Spondylosis without myelopathy or radiculopathy, lumbosacral region (principal); E78.5 Hyperlipidemia, unspecified; J45.909 Unspecified asthma, uncomplicated; F41.0 Panic disorder [episodic paroxysmal anxiety]; F17.210 Nicotine dependence, cigarettes, uncomplicated; G89.29 Other chronic pain; M54.50 Low back pain, unspecified; Z90.49 Acquired absence of other specified parts of digestive tract
CPT/HCPCS: 64635; 64636 ×3; 99199; J2003; J2250; J2704; J3010; J7120